=== PATIENT | female | born 1995 | race Hispanic/Latino ===

== ENCOUNTER 2017-11-08 12:50 | Emergency (ER) | payer SELFPAY ==
[2017-11-08 15:02] LABS: Urine Blood TRACE (NEG); Urine Glucose NEGATIVE (NEG); Urine Protein NEGATIVE (NEG)
--- NOTE | 2017-11-08 15:18 | RAD REPORT ---
EXAM DESCRIPTION: US - Transvaginal Study Probe - 11/08/2017 3:06 pm CLINICAL HISTORY: ICD N92.5 heavy menses COMPARISON: 2010 FINDINGS: The uterus measures 7 x 5 x 6cm. A fibroid is not seen. The endometrial stripe measures 18 millimeters. The ovaries are normal in size and echotexture. A small amount of free fluid is present. IMPRESSION: Mild prominence the endometrial stripe. Follow-up ultrasound in a couple months is recom mended to assess stability/resolution
[2017-11-08 15:48] LABS: Absolute Lymphocytes (CBC) 2.5 K/uL (0.7-4.9); Absolute Monocytes 0.5 K/uL (0.1-1.3); Absolute Neutrophil 5.6 K/uL (1.8-8.0); Basophils % 0.9 % (0-1.3); MCH 24.6 pg (27.0-35.0); MCV 77.2 fL (80-100); MPV 9.5 fL (7.6-11.3); Monocytes % 5.2 % (3.3-12.3)
[2017-11-08 15:50] LABS: BUN Blood Urea Nitrogen 8 mg/dL (6-20); Bicarbonate 27 mEq/L (21-31); Glucose Level 94 mg/dL (65-120); Potassium 3.7 mEq/L (3.6-5.0); Sodium Level 137 mEq/L (135-145)
--- NOTE | 2017-11-08 16:01 | ER ---
Nurse's Notes [facility] Name: Rubina Martinez Age: 22 yrs Sex: Female : 1995 Arrival Date: 11/08/2017 Time: 12:51 Bed 14 Private MD: Diagnosis: Lower abdominal pain, unspecified Presentation: 11/08 13:32 Presenting complaint: Patient states: Lower abdominal/ pelvic pain that started aj yesterday. Denies N/V/D, constipation, burning with urination, or vaginal discharge. Not tender upon palpation. Transition of care: patient was not received from another setting of care. Onset of symptoms was November 07, 2017. Initial Sepsis Screen: Does the patient meet any 2 criteria? No. Patient's initial sepsis screen is negative. Does the patient have a suspected source of infection? No. Patient's initial sepsis screen is negative. Care prior to arrival: None. 13:32 Method Of Arrival: Ambulatory aj 13:32 Acuity: ARYAN 3 aj Triage Assessment: 13:34 General: Appears in no apparent distress. comfortable, Behavior is calm, cooperative, aj appropriate for age. Pain: Complains of pain in right lower quadrant, left lower quadrant, suprapubic area, right inguinal area and left inguinal area Pain currently is 7 out of 10 on a pain scale. Neuro: Level of Consciousness is awake, alert, obeys commands, Oriented to person, place, time, situation. Respiratory: Airway is patent Respiratory effort is even, unlabored, Respiratory pattern is regular, symmetrical. GI: Reports lower abdominal pain, Patient currently denies constipation, diarrhea, nausea, vomiting. : Denies burning with urination, vaginal bleeding. Derm: Skin is intact, is healthy with good turgor, Skin is pink, warm \T\ dry. normal. 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 - Social history:: Smoking status: Patient/guardian denies using tobacco. Screenin:25 Abuse screen: Denies threats or abuse. Denies injuries from another. Nutritional jl7 screening: No deficits noted. Tuberculosis screening: No symptoms or risk factors identified. Fall Risk None identified. Assessment: 14:25 General: Appears in no apparent distress. uncomfortable, Behavior is calm, cooperative, jl7 appropriate for age. Pain: Complains of pain in left lower quadrant and right lower quadrant Pain radiates to pelvis Pain currently is 7 out of 10 on a pain scale. Quality of pain is described as sharp, Pain began 1 day ago. Is continuous. Neuro: Level of Consciousness is awake, alert, obeys commands, Oriented to person, place, time, situation. Cardiovascular: Patient's skin is warm and dry. Respiratory: Airway is patent Respiratory effort is even, unlabored, Respiratory pattern is regular, symmetrical. GI: Bowel sounds present X 4 quads. Abd is soft X 4 quads Abdomen is tender to palpation in left lower quadrant and right lower quadrant Patient currently denies diarrhea, nausea, vomiting. : Denies burning with urination, pain. EENT: No signs and/or symptoms were reported regarding the EENT system. Derm: Skin is pink, warm \T\ dry. Musculoskeletal: No signs and/or symptoms reported regarding the musculoskeletal system. 15:30 Reassessment: No changes from previously documented assessment. Patient and/or family jl7 updated on plan of care and expected duration. Pain level reassessed. Patient is alert, oriented x 3, equal unlabored respirations, skin warm/dry/pink. Vital Signs: 13:34 BP 106 / 72; Pulse 83; Resp 19; Temp 99.0; Pulse Ox 99% on R/A; Weight 58.97 kg; Height aj 5 ft. 5 in. (165.10 cm); Pain 7/10; 14:30 BP 101 / 71; Pulse 84; Resp 16; Pulse Ox 99% ; jl7 15:00 BP 104 / 70; Pulse 84; Resp 16; Pulse Ox 99% ; jl7 16:00 BP 103 / 67; Pulse 80; Resp 16 S; Pulse Ox 99% on R/A; jl7 13:34 Body Mass Index 21.63 (58.97 kg, 165.10 cm) aj ED Course: 12:51 Patient arrived in ED. as 13:34 Triage completed. aj 13:34 Arm band placed on left wrist. Patient placed in waiting room, Patient notified of wait aj time. 14:17 Candice Casillas FNP-C is PHCP. kb 14:17 Brett Sapp MD is Attending Physician. kb 14:23 Tre Day, RN is Primary Nurse. jl7 14:25 Patient has correct armband on for positive identification. Bed in low position. Call jl7 light in reach. Side rails up X 1. Pulse ox on. NIBP on. 15:06 US Transvaginal Study (Probe) In Process Unspecified. EDMS 15:35 Initial lab(s) drawn, by me, sent to lab. Inserted saline lock: 20 gauge in right jl7 antecubital area, using aseptic technique. Blood collected. 16:16 No provider procedures requiring assistance completed. IV discontinued, intact, jl7 bleeding controlled, No redness/swelling at site. Pressure dressing applied. Administered Medications: No medications were administered Outcome: 16:00 Discharge ordered by MD. kb 16:16 Discharged to home ambulatory. jl7 16:16 Condition: stable 16:16 Discharge instructions given to patient, Instructed on discharge instructions, follow up and referral plans. medication usage, Demonstrated understanding of instructions, follow-up care, medications, Prescriptions given X 1. 16:17 Patient left the ED. jl7 Signatures: Dispatcher [employer] EDMS Candice Casillas, LINA VACUUM DRIER OPERATOR-Nereida Caceres, RN RN Leeann Young as Tre Day, RN RN [email or web address]
--- NOTE | 2017-11-08 16:01 | EDPHYS ---
Physician Documentation [facility] Name: Rubina Martinez Age: 22 yrs Sex: Female : 1995 Arrival Date: 11/08/2017 Time: 12:51 Bed 14 Private MD: ED Physician Brett Sapp HPI: 11/08 15:59 This 22 yrs old Female presents to ER via Ambulatory with complaints of kb Abdominal Pain. 15:59 The patient presents with abdominal pain in the lower abdomen. Onset: The kb symptoms/episode began/occurred last night. The symptoms do not radiate. Associated signs and symptoms: none. The symptoms are described as achy. Modifying factors: The symptoms are alleviated by nothing, the symptoms are aggravated by nothing. Severity of pain: At its worst the pain was mild in the emergency department the pain is unchanged. The patient has not experienced similar symptoms in the past. The patient has not recently seen a physician. 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 - Social history:: Smoking status: Patient/guardian denies using tobacco. ROS: 15:57 Constitutional: Negative for fever, chills, and weight loss, Cardiovascular: Negative kb for chest pain, palpitations, and edema, Respiratory: Negative for shortness of breath, cough, wheezing, and pleuritic chest pain, Back: Negative for injury and pain, : Negative for injury, bleeding, discharge, and swelling, MS/Extremity: Negative for injury and deformity, Skin: Negative for injury, rash, and discoloration, Neuro: Negative for headache, weakness, numbness, tingling, and seizure. 15:57 Abdomen/GI: Positive for abdominal pain, Negative for nausea, vomiting, and diarrhea, constipation, abdominal cramps, abdominal distension, anorexia. Exam: 15:57 Constitutional: This is a well developed, well nourished patient who is awake, alert, kb and in no acute distress. Head/Face: Normocephalic, atraumatic. Chest/axilla: Normal chest wall appearance and motion. Nontender with no deformity. No lesions are appreciated. Cardiovascular: Regular rate and rhythm with a normal S1 and S2. No gallops, murmurs, or rubs. Normal PMI, no JVD. No pulse deficits. Respiratory: Lungs have equal breath sounds bilaterally, clear to auscultation and percussion. No rales, rhonchi or wheezes noted. No increased work of breathing, no retractions or nasal flaring. Back: No spinal tenderness. No costovertebral tenderness. Full range of motion. Skin: Warm, dry with normal turgor. Normal color with no rashes, no lesions, and no evidence of cellulitis. MS/ Extremity: Pulses equal, no cyanosis. Neurovascular intact. Full, normal range of motion. Neuro: Awake and alert, GCS 15, oriented to person, place, time, and situation. Cranial nerves II-XII grossly intact. Motor strength 5/5 in all extremities. Sensory grossly intact. Cerebellar exam normal. Normal gait. 15:57 Abdomen/GI: Inspection: abdomen appears normal, Bowel sounds: normal, in all quadrants, Palpation: soft, in all quadrants, mild abdominal tenderness, in the right lower quadrant and left lower quadrant. Vital Signs: 13:34 BP 106 / 72; Pulse 83; Resp 19; Temp 99.0; Pulse Ox 99% on R/A; Weight 58.97 kg; Height aj 5 ft. 5 in. (165.10 cm); Pain 7/10; 14:30 BP 101 / 71; Pulse 84; Resp 16; Pulse Ox 99% ; jl7 15:00 BP 104 / 70; Pulse 84; Resp 16; Pulse Ox 99% ; jl7 16:00 BP 103 / 67; Pulse 80; Resp 16 S; Pulse Ox 99% on R/A; jl7 13:34 Body Mass Index 21.63 (58.97 kg, 165.10 cm) aj MDM: 14:18 Patient medically screened. kb 15:57 Data reviewed: vital signs, nurses notes. Data interpreted: Pulse oximetry: on room air kb is 99 %. Interpretation: normal. Counseling: I had a detailed discussion with the patient and/or guardian regarding: the historical points, exam findings, and any diagnostic results supporting the discharge/admit diagnosis, lab results, radiology results, the need for outpatient follow up, a family practitioner, to return to the emergency department if symptoms worsen or persist or if there are any questions or concerns that arise at home. 11/08 14:42 Order name: Urine Dipstick--Ancillary (enter results); Complete Time: 15:08 mw2 11/08 14:42 Order name: Urine --Ancillary (enter results); Complete Time: 15:08 mw2 11/08 14:29 Order name: Urine Dipstick-Ancillary (obtain specimen); Complete Time: 14:36 kb 11/08 14:36 Order name: US Transvaginal Study (Probe); Complete Time: 15:33 kb 11/08 15:14 Order name: CBC with Diff; Complete Time: 15:57 kb 11/08 15:14 Order name: Basic Metabolic Panel; Complete Time: 15:57 kb 11/08 14:30 Order name: Urine Test (obtain specimen); Complete Time: 14:36 kb Administered Medications: No medications were administered Disposition: 16:43 Co-signature as Attending Physician, Brett Sapp MD. rn Disposition: 11/08/17 16:00 Discharged to Home. Impression: Lower abdominal pain, unspecified. - Condition is Stable. - Discharge Instructions: Abdominal Pain, Women. - Prescriptions for Diclofenac Sodium 75 mg Oral Tablet, Delayed Release (E.C.) - take 1 tablet by ORAL route 2 times per day As needed; 30 tablet. - Medication Reconciliation Form, Thank You Letter, Antibiotic Education, Prescription Opioid Use form. - Follow up: Emergency Department; When: As needed; Reason: Worsening of condition. Follow up: Private Physician; When: 2 - 3 days; Reason: Recheck today's complaints, Continuance of care, Re-evaluation by your physician. Signatures: Dispatcher [employer] Candice Valenzuela, COMMUNICATION EQUIPMENT MECHANIC-C COMMUNICATION EQUIPMENT MECHANIC-Nereida Caceres, RN Brett Ortez MD MD rn Leal, Jahala, RN RN jl7
[2017-11-08 16:32] VITALS: TEMP 99; O2SAT 99
[2017-11-08 16:35] VITALS: BP 103/67
== END 2017-11-08 16:17 | disposition home or self-care (01) ==
LOC: ER 12:50
DX: R10.30 Lower abdominal pain, unspecified (principal)
CPT/HCPCS: 36415; 76830; 80048; 81003; 81025; 85025; 99284

== ENCOUNTER 2018-02-26 21:59 | Emergency (ER) | payer BC, SELFPAY ==
--- NOTE | 2018-02-26 22:40 | ER ---
Nurse's Notes [facility] Name: Rubina Martinez Age: 22 yrs Sex: Female : 1995 Arrival Date: 02/26/2018 Time: 22:02 Bed 25 Private MD: Diagnosis: Labial edema Presentation: 02/26 22:11 Presenting complaint: Patient states: lip swelling that started last night. pt denies ak1 changes in routine or diet. pt stated she took Benadryl last night and again today at 1500. Transition of care: patient was not received from another setting of care. Onset of symptoms was February 25, 2018. Risk Assessment: Do you want to hurt yourself or someone else? Patient reports no desire to harm self or others. Care prior to arrival: None. 22:11 Method Of Arrival: Ambulatory ak1 22:11 Acuity: ARYAN 4 ak1 22:49 Initial Sepsis Screen: Does the patient meet any 2 criteria? No. Patient's initial tl3 sepsis screen is negative. Does the patient have a suspected source of infection? No. Patient's initial sepsis screen is negative. Triage Assessment: 22:13 General: Appears in no apparent distress. Behavior is calm, cooperative. Pain: ak1 Complains of pain in mouth. EENT: No signs and/or symptoms were reported regarding the EENT system. Neuro: Cardiovascular: No deficits noted. Respiratory: No deficits noted. GI: No signs and/or symptoms were reported involving the gastrointestinal system. : No signs and/or symptoms were reported regarding the genitourinary system. Derm: swelling to top lip. Musculoskeletal: No signs and/or symptoms reported regarding the musculoskeletal system. 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 - Social history:: Smoking status: Patient/guardian denies using tobacco. - Ebola Screening: : No symptoms or risks identified at this time. Screenin:14 Abuse screen: Denies threats or abuse. Denies injuries from another. Nutritional ak1 screening: No deficits noted. Tuberculosis screening: No symptoms or risk factors identified. Fall Risk None identified. Assessment: 22:28 General: Appears in no apparent distress. comfortable, well groomed, well developed, tl3 well nourished, Behavior is calm, cooperative, appropriate for age. Pain: Denies pain. Neuro: Level of Consciousness is awake, alert, obeys commands, Oriented to person, place, time, situation, Appropriate for age. Cardiovascular: Patient's skin is warm and dry. Respiratory: Airway is patent Respiratory effort is even, unlabored, Respiratory pattern is regular, symmetrical. GI: No signs and/or symptoms were reported involving the gastrointestinal system. : No signs and/or symptoms were reported regarding the genitourinary system. EENT: No signs and/or symptoms were reported regarding the EENT system. Derm: No signs and/or symptoms reported regarding the dermatologic system. Musculoskeletal: No signs and/or symptoms reported regarding the musculoskeletal system. 22:48 Reassessment: Patient appears in no apparent distress at this time. No changes from tl3 previously documented assessment. Patient and/or family updated on plan of care and expected duration. Pain level reassessed. Patient is alert, oriented x 3, equal unlabored respirations, skin warm/dry/pink. Vital Signs: 22:10 BP 110 / 56; Pulse 70; Resp 16; Temp 98.8(O); Pulse Ox 100% on R/A; Weight 58.97 kg ak1 (R); Height 5 ft. 5 in. (165.10 cm) (R); Pain 3/10; 22:48 BP 101 / 47; Pulse 86; Resp 18; Pulse Ox 99% ; tl3 22:10 Body Mass Index 21.63 (58.97 kg, 165.10 cm) ak1 ED Course: 22:02 Patient arrived in ED. do 22:04 Karin Mustafa [facility]-C [facility]. snw 22:04 Justin Torres MD is Attending Physician. snw 22:10 Arm band placed on Patient placed in an exam room, on a stretcher, on pulse oximetry, ak1 Patient notified of wait time. 22:12 Triage completed. ak1 22:14 Patient has correct armband on for positive identification. Bed in low position. Call ak1 light in reach. Side rails up X 1. Pulse ox on. NIBP on. 22:28 Martha Cutler, RN is Primary Nurse. tl3 22:29 No provider procedures requiring assistance completed. Patient did not have IV access tl3 during this emergency room visit. Administered Medications: 22:45 Drug: Acyclovir 800 mg Route: PO; mg2 22:46 Follow up: Response: No adverse reaction; Medication administered at discharge. mg2 22:47 Follow up: Response: Medication administered at discharge. tl3 22:45 Drug: predniSONE 20 mg Route: PO; mg2 22:46 Follow up: Response: No adverse reaction; Medication administered at discharge. mg2 22:47 Follow up: Response: Medication administered at discharge. tl3 Outcome: 22:40 Discharge ordered by MD. snw 22:48 Discharged to home ambulatory. tl3 22:48 Condition: good 22:48 Discharge instructions given to patient, Instructed on discharge instructions, follow up and referral plans. medication usage, Demonstrated understanding of instructions, follow-up care, medications, Prescriptions given X 2. 22:49 Patient left the ED. tl3 Signatures: Karin Mustafa, LAWN CARE WORKER-C LAWN CARE WORKER-Csnw Dyana Castillo, RN RN ak1 Nadia Sanchez Tammy, RN RN tl3 Frederick Mancuso RN RN mg2
--- NOTE | 2018-02-26 22:40 | EDPHYS ---
Physician Documentation [facility] Name: Rubina Martinez Age: 22 yrs Sex: Female : 1995 Arrival Date: 02/26/2018 Time: 22:02 Bed 25 Private MD: ED Physician Justin Torres HPI: 02/26 22:50 This 22 yrs old Female presents to ER via Ambulatory with complaints of Lips snw Swelling. 22:50 The patient presents with swelling. The problem is located in the upper moises snw border. Onset: The symptoms/episode began/occurred suddenly. Duration: The symptoms are continuous, and are unchanged since they started. Associated signs and symptoms: The patient has no apparent associated signs or symptoms. Severity of symptoms: At their worst the symptoms were moderate. The patient has not experienced similar symptoms in the past. The patient has not recently seen a physician. 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 - Social history:: Smoking status: Patient/guardian denies using tobacco. - Ebola Screening: : No symptoms or risks identified at this time. ROS: 22:49 Constitutional: Negative for fever, chills, and weight loss, Eyes: Negative for injury, snw pain, redness, and discharge, Neck: Negative for injury, pain, and swelling, Cardiovascular: Negative for chest pain, palpitations, and edema, Respiratory: Negative for shortness of breath, cough, wheezing, and pleuritic chest pain, Abdomen/GI: Negative for abdominal pain, nausea, vomiting, diarrhea, and constipation, Back: Negative for injury and pain, : Negative for injury, bleeding, discharge, and swelling, MS/Extremity: Negative for injury and deformity, Skin: Negative for injury, rash, and discoloration, Neuro: Negative for headache, weakness, numbness, tingling, and seizure, Psych: Negative for depression, anxiety, suicide ideation, homicidal ideation, and hallucinations. 22:49 ENT: Positive for upper lip with swelling to midline area, notes that she may have bitten her upper lip and then the swelling began. Exam: 22:47 Constitutional: This is a well developed, well nourished patient who is awake, alert, snw and in no acute distress. Head/Face: Normocephalic, atraumatic. Eyes: Pupils equal round and reactive to light, extra-ocular motions intact. Lids and lashes normal. Conjunctiva and sclera are non-icteric and not injected. Cornea within normal limits. Periorbital areas with no swelling, redness, or edema. ENT: Nares patent. No nasal discharge, no septal abnormalities noted. Tympanic membranes are normal and external auditory canals are clear. Oropharynx with no redness, swelling, or masses, exudates, or evidence of obstruction, uvula midline. upper labia with edema with mildline ulcerated area/scabbed. Mucous membranes moist. Neck: Trachea midline, no thyromegaly or masses palpated, and no cervical lymphadenopathy. Supple, full range of motion without nuchal rigidity, or vertebral point tenderness. No Meningismus. Chest/axilla: Normal chest wall appearance and motion. Nontender with no deformity. No lesions are appreciated. Cardiovascular: Regular rate and rhythm with a normal S1 and S2. No gallops, murmurs, or rubs. Normal PMI, no JVD. No pulse deficits. Respiratory: Lungs have equal breath sounds bilaterally, clear to auscultation and percussion. No rales, rhonchi or wheezes noted. No increased work of breathing, no retractions or nasal flaring. Abdomen/GI: Soft, non-tender, with normal bowel sounds. No distension or tympany. No guarding or rebound. No evidence of tenderness throughout. Back: No spinal tenderness. No costovertebral tenderness. Full range of motion. Skin: Warm, dry with normal turgor. Normal color with no rashes, no lesions, and no evidence of cellulitis. MS/ Extremity: Pulses equal, no cyanosis. Neurovascular intact. Full, normal range of motion. Neuro: Awake and alert, GCS 15, oriented to person, place, time, and situation. Cranial nerves II-XII grossly intact. Motor strength 5/5 in all extremities. Sensory grossly intact. Cerebellar exam normal. Normal gait. Psych: Awake, alert, with orientation to person, place and time. Behavior, mood, and affect are within normal limits. Vital Signs: 22:10 BP 110 / 56; Pulse 70; Resp 16; Temp 98.8(O); Pulse Ox 100% on R/A; Weight 58.97 kg ak1 (R); Height 5 ft. 5 in. (165.10 cm) (R); Pain 3/10; 22:48 BP 101 / 47; Pulse 86; Resp 18; Pulse Ox 99% ; tl3 22:10 Body Mass Index 21.63 (58.97 kg, 165.10 cm) ak1 MDM: 22:26 Patient medically screened. snw 22:48 Data reviewed: vital signs, nurses notes. Data interpreted: Pulse oximetry: on room air snw is 100 %. Interpretation: normal. Counseling: I had a detailed discussion with the patient and/or guardian regarding: the historical points, exam findings, and any diagnostic results supporting the discharge/admit diagnosis, the need for outpatient follow up, to return to the emergency department if symptoms worsen or persist or if there are any questions or concerns that arise at home. Special discussion: Based on the history and exam findings, there is no indication for further emergent testing or inpatient evaluation. I discussed with the patient/guardian the need to see the primary care provider for further evaluation of the symptoms. Administered Medications: 22:45 Drug: Acyclovir 800 mg Route: PO; mg2 22:46 Follow up: Response: No adverse reaction; Medication administered at discharge. mg2 22:47 Follow up: Response: Medication administered at discharge. tl3 22:45 Drug: predniSONE 20 mg Route: PO; mg2 22:46 Follow up: Response: No adverse reaction; Medication administered at discharge. mg2 22:47 Follow up: Response: Medication administered at discharge. tl3 Disposition: 02/26/18 22:40 Discharged to Home. Impression: Labial edema. - Condition is Stable. - Discharge Instructions: Edema, Cryotherapy. - Prescriptions for Valtrex 1 g Oral Tablet - take 2 tablet by ORAL route every 12 hours for 1 day; 4 tablet. Prednisone 20 mg Oral Tablet - take 1 tablet by ORAL route 2 times per day for 5 days; 10 tablet. - Work release form, Medication Reconciliation Form, Thank You Letter, Antibiotic Education, Prescription Opioid Use form. - Follow up: Private Physician; When: 2 - 3 days; Reason: Recheck today's complaints, Continuance of care, Re-evaluation by your physician. Follow up: Emergency Department; When: As needed; Reason: Worsening of condition. Addendum: 03/03/2018 15:30 Co-signature as Attending Physician, Justin Torres MD. g s Signatures: Karin Mustafa, BILLER-C BILLER-Csnw Dyana Castillo, RN RN ak1 Justin Torres MD MD gs Martha Cutler, RN RN tl3 Frederick Mancuso RN RN mg2 Corrections: (The following items were deleted from the chart) 02/26 22:49 22:40 02/26/2018 22:40 Discharged to Home. Impression: Labial edema. Condition is tl3 Stable. Forms are Medication Reconciliation Form, Thank You Letter, Antibiotic Education, Prescription Opioid Use. Follow up: Private Physician; When: 2 - 3 days; Reason: Recheck today's complaints, Continuance of care, Re-evaluation by your physician. Follow up: Emergency Department; When: As needed; Reason: Worsening of condition. snw
[2018-02-26] MEDS ORDERED: ACYCLOVIR 400 MG TABLET ONE (22:46)
[2018-02-26] MEDS ORDERED: predniSONE 20 MG TAB ONE (22:47)
[2018-02-27 01:05] VITALS: TEMP 98.8
[2018-02-27 01:06] VITALS: BP 101/47; O2SAT 99
== END 2018-02-26 22:49 | disposition home or self-care (01) ==
LOC: ER 21:59
DX: R60.0 Localized edema (principal)
CPT/HCPCS: 99283; J7512

== ENCOUNTER 2018-10-18 14:12 | Emergency (ER) | payer BC ==
--- NOTE | 2018-10-18 15:30 | RAD REPORT ---
EXAM DESCRIPTION: RAD - Wrist Right 3 View - 10/18/2018 3:15 pm CLINICAL HISTORY: Right wrist pain following fall COMPARISON: January 2012 FINDINGS: No fracture is identified. There is no dislocation or periosteal reaction noted. No acute bone or joint finding. No significant change from the 2012 study. No foreign body or other soft tissu e abnormality. IMPRESSION: Negative right wrist examination.
--- NOTE | 2018-10-18 15:31 | RAD REPORT ---
EXAM DESCRIPTION: RAD - Hand Right 3 View - 10/18/2018 3:15 pm CLINICAL HISTORY: Fall, right hand and wrist pain COMPARISON: None. FINDINGS: No fracture is identified. There is no dislocation or periosteal reaction noted. No forei gn body or other soft tissue abnormality. IMPRESSION: Negative right hand examination.
--- NOTE | 2018-10-18 15:35 | ER ---
Nurse's Notes [facility] Name: Rubina Martinez Age: 23 yrs Sex: Female : 1995 Arrival Date: 10/18/2018 Time: 14:14 Bed 12 Private MD: Diagnosis: Contusion of right wrist Presentation: 10/18 14:16 Presenting complaint: Patient states: "I was at work and the floor was wet so I fell aa5 and the plates that I was carrying fell on top of my wrist". pt c/o right wrist pain. 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 Transition of care: patient was not received from another setting of care. Onset of symptoms was October 18, 2018. Risk Assessment: Do you want to hurt yourself or someone else? Patient reports no desire to harm self or others. Initial Sepsis Screen: Does the patient meet any 2 criteria? No. Patient's initial sepsis screen is negative. Does the patient have a suspected source of infection? No. Patient's initial sepsis screen is negative. Care prior to arrival: None. 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 - Social history:: Smoking status: Patient/guardian denies using tobacco. - Ebola Screening: : No symptoms or risks identified at this time. - Family history:: not pertinent. - Hospitalizations: : No recent hospitalization is reported. Screenin:24 Abuse screen: Denies threats or abuse. Nutritional screening: No deficits noted. aa5 Tuberculosis screening: No symptoms or risk factors identified. Fall Risk None identified. Assessment: 14:22 General: Appears comfortable, Behavior is calm, cooperative. Pain: Complains of pain in aa5 right wrist Quality of pain is described as aching, throbbing, Is continuous, Aggravated by any movement to right wrist. Neuro: Level of Consciousness is awake, alert, obeys commands, Oriented to person, place, time, situation. Cardiovascular: Capillary refill < 3 seconds is brisk in bilateral fingers. Respiratory: Airway is patent Respiratory effort is even, unlabored, Respiratory pattern is regular, symmetrical. GI: No signs and/or symptoms were reported involving the gastrointestinal system. : No signs and/or symptoms were reported regarding the genitourinary system. EENT: No signs and/or symptoms were reported regarding the EENT system. Derm: Skin is pink, warm \\T\\ dry. Musculoskeletal: Reports pain in right wrist. Vital Signs: 14:17 BP 103 / 69; Pulse 86; Resp 16 S; Temp 99.3(TE); Pulse Ox 99% on R/A; Weight 58.97 kg aa5 (R); Height 5 ft. 6 in. (167.64 cm) (R); Pain 8/10; 14:17 Body Mass Index 20.98 (58.97 kg, 167.64 cm) aa5 ED Course: 14:14 Patient arrived in ED. mr 14:17 Triage completed. aa5 14:17 Arm band placed on. aa5 14:17 Patient has correct armband on for positive identification. aa5 14:18 Jenny Beyer RN is Primary Nurse. aa5 14:20 Brett Sapp MD is Attending Physician. rn 15:13 X-ray completed. Portable x-ray completed in exam room. Patient tolerated procedure ml well. 15:15 XRAY Wrist RIGHT 3 view In Process Unspecified. EDMS 15:15 XRAY Hand RIGHT 3 View In Process Unspecified. EDMS 15:40 No provider procedures requiring assistance completed. Patient did not have IV access aa5 during this emergency room visit. Administered Medications: No medications were administered Outcome: 15:33 Discharge ordered by . rn 15:40 Discharged to home ambulatory. aa5 15:40 Condition: good 15:40 Discharge instructions given to patient, Instructed on discharge instructions, follow up and referral plans. Demonstrated understanding of instructions, follow-up care. 15:46 Patient left the ED. aa5 Signatures: Dispatcher [employer] EDPA Florian Josiane Oliveira Doris Brett Barillas MD MD rn Calderon, Audri, RN RN aa5 Corrections: (The following items were deleted from the chart) 14:18 14:17 BP 103 / 69; Pulse 86bpm; Resp 16bpm; Spontaneous; Pulse Ox 99% RA; Temp 99.3F aa5 Temporal; 58.97 kg Reported; Height 5 ft. 6 in. Reported; BMI: 20.9; aa5
--- NOTE | 2018-10-18 15:35 | EDPHYS ---
Physician Documentation [facility] Name: Rubina Martinez Age: 23 yrs Sex: Female : 1995 Arrival Date: 10/18/2018 Time: 14:14 Bed 12 Private MD: ED Physician Brett Sapp HPI: 10/18 14:24 This 23 yrs old Female presents to ER via Ambulatory with complaints of Fall rn Injury, Wrist Injury. 14:24 Details of fall: The patient fell from an upright position. rn 14:24 Onset: The symptoms/episode began/occurred today. Associated injuries: The patient rn sustained right wrist and hand. Severity of symptoms: At their worst the symptoms were mild, in the emergency department the symptoms are unchanged. The patient has not experienced similar symptoms in the past. Reports fall from standing, landed on right wrist and then plates landed on wrist, isolated injury. . 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 - Social history:: Smoking status: Patient/guardian denies using tobacco. - Ebola Screening: : No symptoms or risks identified at this time. - Family history:: not pertinent. - Hospitalizations: : No recent hospitalization is reported. ROS: 14:24 Constitutional: Negative for fever, chills, and weight loss, MS/Extremity: + right rn wrist and hand injury Exam: 14:24 Constitutional: This is a well developed, well nourished patient who is awake, alert, rn and in no acute distress. MS/ Extremity: Pulses equal, no cyanosis. + tenderness over distal right radius, no deformity, painful ROM right wrist and tenderness over 2nd/3rd MC. Vital Signs: 14:17 BP 103 / 69; Pulse 86; Resp 16 S; Temp 99.3(TE); Pulse Ox 99% on R/A; Weight 58.97 kg aa5 (R); Height 5 ft. 6 in. (167.64 cm) (R); Pain 8/10; 14:17 Body Mass Index 20.98 (58.97 kg, 167.64 cm) aa5 MDM: 14:20 Patient medically screened. rn 15:33 Differential diagnosis: contusion, fracture. Data reviewed: vital signs, nurses notes, rn radiologic studies, plain films, and as a result, I will discharge patient. Counseling: I had a detailed discussion with the patient and/or guardian regarding: the historical points, exam findings, and any diagnostic results supporting the discharge/admit diagnosis, radiology results, the need for outpatient follow up, to return to the emergency department if symptoms worsen or persist or if there are any questions or concerns that arise at home. Special discussion: I discussed with the patient/guardian in detail that at this point there is no indication for admission to the hospital. It is understood, however, that if the symptoms persist or worsen the patient needs to return immediately for re-evaluation. 10/18 14:24 Order name: XRAY Wrist RIGHT 3 view; Complete Time: 15:33 rn 10/18 14:24 Order name: XRAY Hand RIGHT 3 View; Complete Time: 15:33 rn Administered Medications: No medications were administered Disposition: 10/18/18 15:33 Discharged to Home. Impression: Contusion of right wrist. - Condition is Stable. - Discharge Instructions: Contusion, Wrist Pain. - Medication Reconciliation Form, Thank You Letter, Antibiotic Education, Prescription Opioid Use, Work release form form. - Follow up: Private Physician; When: As needed; Reason: Recheck today's complaints, Re-evaluation by your physician. - Problem is new. - Symptoms have improved. Signatures: Dispatcher [employer] EDBrett Conn MD MD rn Calderon, Audri, RN RN aa5 Corrections: (The following items were deleted from the chart) 15:46 15:33 10/18/2018 15:33 Discharged to Home. Impression: Contusion of right wrist. aa5 Condition is Stable. Forms are Medication Reconciliation Form, Thank You Letter, Antibiotic Education, Prescription Opioid Use. Follow up: Private Physician; When: As needed; Reason: Recheck today's complaints, Re-evaluation by your physician. Problem is new. Symptoms have improved. rn
[2018-10-18 15:53] VITALS: BP 103/69; TEMP 99.3; O2SAT 99
== END 2018-10-18 15:46 | disposition home or self-care (01) ==
LOC: ER 14:12
DX: S60.211A Contusion of right wrist, initial encounter (principal); W19.XXXA Unspecified fall, initial encounter; Y93.9 Activity, unspecified; Y92.9 Unspecified place or not applicable
CPT/HCPCS: 99283

== ENCOUNTER 2018-11-12 22:24 | Emergency (ER) | payer BC ==
[2018-11-12 23:24] LABS: Absolute Lymphocytes (CBC) 1.7 K/uL (0.7-4.9); Absolute Monocytes 0.4 K/uL (0.1-1.3); Absolute Neutrophil 3.6 K/uL (1.8-8.0); Basophils % 0.4 % (0-1.3); Eosinophils % 1.4 % (0-4.4); Lymphocytes % 30.1 % (15.3-44.8); MPV 9.4 fL (7.6-11.3); Monocytes % 6.6 % (3.3-12.3); RBC Red Blood Cell Count 4.72 M/uL (3.86-4.86)
[2018-11-12 23:36] LABS: Urine Blood NEGATIVE (NEG); Urine Glucose NEGATIVE (NEG); Urine Protein 1+ (NEG); Urine pH 7.5 (5.0-7.0)
[2018-11-12 23:41] LABS: ALT/SGPT 11 U/L (12-78); AST/SGOT 11 U/L (15-37); Albumin 3.7 g/dL (3.4-5.0); Alkaline Phosphatase 55 U/L (45-117); BUN Blood Urea Nitrogen 9 mg/dL (7-18); Bicarbonate 26 mmol/L (21-32); Bilirubin Direct 0.3 mg/dL (0-0.2); Bilirubin Total 1.7 mg/dL (0.2-1.0); Glucose Level 96 mg/dL (74-106); Lipase 93 U/L (73-393); Potassium 3.5 mmol/L (3.5-5.1); Protein, Total 7.6 g/dL (6.4-8.2); Sodium Level 142 mmol/L (136-145)
[2018-11-13] MEDS ORDERED: NA CHLORIDE 0.9% 1,000 ML ONE (01:17)
[2018-11-13] MEDS ORDERED: KETOROLAC 30 MG/ML INJ ONE (01:17)
--- NOTE | 2018-11-13 01:40 | ER ---
Nurse's Notes [facility] Name: Rubina Martinez Age: 23 yrs Sex: Female : 1995 Arrival Date: 11/12/2018 Time: 22:28 Bed 20 Private MD: Diagnosis: Abdominal tenderness Presentation: 11/12 22:38 Presenting complaint: Patient states: Left sided rib pain that began last week, pain lp1 worse now, aggravated by breathing; denies any trauma. Transition of care: patient was not received from another setting of care. Onset of symptoms was November 12, 2018. Risk Assessment: Do you want to hurt yourself or someone else? Patient reports no desire to harm self or others. Initial Sepsis Screen: Does the patient meet any 2 criteria? No. Patient's initial sepsis screen is negative. Does the patient have a suspected source of infection? No. Patient's initial sepsis screen is negative. Care prior to arrival: None. 22:38 Method Of Arrival: Ambulatory lp1 22:38 Acuity: ARYAN 4 lp1 Triage Assessment: 22:37 General: Appears in no apparent distress. uncomfortable, Behavior is calm, cooperative, cc3 appropriate for age. Pain: Complains of pain in left flank. 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 - Social history:: Smoking status: Patient/guardian denies using tobacco. - Ebola Screening: : No symptoms or risks identified at this time. Screenin:40 Abuse screen: Denies threats or abuse. Denies injuries from another. Nutritional lp1 screening: No deficits noted. Tuberculosis screening: No symptoms or risk factors identified. Fall Risk None identified. Assessment: 22:37 Reassessment: Patient appears in no apparent distress at this time. Patient and/or cc3 family updated on plan of care and expected duration. Pain level reassessed. Patient is alert, oriented x 3, equal unlabored respirations, skin warm/dry/pink. 23:20 Reassessment: Patient appears in no apparent distress at this time. Patient and/or cc3 family updated on plan of care and expected duration. Pain level reassessed. Patient is alert, oriented x 3, equal unlabored respirations, skin warm/dry/pink. 11/13 00:18 Reassessment: Patient appears in no apparent distress at this time. Patient and/or cc3 family updated on plan of care and expected duration. Pain level reassessed. Patient is alert, oriented x 3, equal unlabored respirations, skin warm/dry/pink. 01:00 Reassessment: Patient appears in no apparent distress at this time. Patient and/or cc3 family updated on plan of care and expected duration. Pain level reassessed. Patient is alert, oriented x 3, equal unlabored respirations, skin warm/dry/pink. Patient wanting to leave, informed Dr. Chandra and he said he's planning to order for a CT scan for the patient, asked the patient if she agrees for that procedure and if she's willing to wait because the procedure and result will take time and she agrees to wait for the procedure, Dr. Chandra informed. 01:30 Reassessment: Patient appears in no apparent distress at this time. Patient and/or cc3 family updated on plan of care and expected duration. Pain level reassessed. Patient is alert, oriented x 3, equal unlabored respirations, skin warm/dry/pink. Patient changed her mind and not willing to wait for the CT scan, Dr. Chandra informed. Patient still opted to go AMA though risks and consequences explained and signed an AMA form, charge nurse Marcela informed. 01:35 Reassessment: IV cannula removed and patient left ER vitally stable and ambulatory with cc3 her mimi friend. Patient denies pain at this time. Patient states feeling better. Patient states symptoms have improved. Vital Signs: 11/12 22:38 BP 111 / 61; Pulse 85; Resp 18; Temp 98.2(O); Pulse Ox 97% on R/A; Weight 58.97 kg; lp1 Height 5 ft. 6 in. (167.64 cm); Pain 8/10; 23:45 BP 101 / 63; Pulse 84; Resp 17 S; Pulse Ox 100% on R/A; cc3 11/13 00:15 BP 110 / 64; Pulse 89; Resp 18 S; Pulse Ox 100% on R/A; cc3 01:08 BP 111 / 57; Pulse 85; Resp 17 S; Pulse Ox 99% on R/A; cc3 01:25 BP 115 / 73; Pulse 86; Resp 18 S; Pulse Ox 100% on R/A; cc3 11/12 22:38 Body Mass Index 20.98 (58.97 kg, 167.64 cm) lp1 ED Course: 11/12 22:28 Patient arrived in ED. es 22:37 Terri Espinal is Primary Nurse. cc3 22:37 Patient has correct armband on for positive identification. Bed in low position. Call cc3 light in reach. Side rails up X 1. Pulse ox on. NIBP on. 22:38 Triage completed. lp1 22:38 Arm band placed on right wrist. lp1 22:39 Umair Chandra MD is Attending Physician. tw4 23:05 Inserted saline lock: 20 gauge in right antecubital area, using aseptic technique. cc3 Blood collected. 11/13 01:35 No provider procedures requiring assistance completed. IV discontinued, intact, cc3 bleeding controlled, No redness/swelling at site. Pressure dressing applied. Administered Medications: 01:00 Drug: NS 0.9% 1000 ml Route: IV; Rate: 1 bolus; Site: right antecubital; cc3 01:30 Follow up: Response: No adverse reaction; IV Status: Order to discontinue infusion; IV cc3 Intake: 600ml ; Patient left AMA 01:05 Drug: TORadol 30 mg Route: IVP; Site: right antecubital; cc3 01:30 Follow up: Response: No adverse reaction; Pain is decreased cc3 Intake: 01:30 IV: 600ml; Total: 600ml. cc3 Outcome: 01:35 AMA AMA form signed cc3 01:35 Condition: stable 01:35 Instructed on follow up and referral plans. Demonstrated understanding of instructions. 01:41 Patient left the ED. cc3 Signatures: Nesha Rasheed Laura, RN RN lp1 Umair Chandra MD MD tw4 Terri Espinal cc3
--- NOTE | 2018-11-13 01:40 | EDPHYS ---
Physician Documentation [facility] Name: Rubina Martinez Age: 23 yrs Sex: Female : 1995 Arrival Date: 11/12/2018 Time: 22:28 Bed 20 Private MD: ED Physician Umair Chandra HPI: 11/13 06:33 This 23 yrs old Female presents to ER via Ambulatory with complaints of LT tw4 SIDE PAIN. 06:33 The patient presents with abdominal pain. Onset: The symptoms/episode began/occurred 1 tw4 week(s) ago. The symptoms do not radiate. Associated signs and symptoms: none. The symptoms are described as dull. Modifying factors: The symptoms are alleviated by nothing, the symptoms are aggravated by nothing. Severity of pain: At its worst the pain was mild in the emergency department the pain is unchanged. The patient has not experienced similar symptoms in the past. 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 - Social history:: Smoking status: Patient/guardian denies using tobacco. - Ebola Screening: : No symptoms or risks identified at this time. ROS: 11/13 06:33 Constitutional: Negative for fever, chills, and weight loss, Eyes: Negative for injury, tw4 pain, redness, and discharge, ENT: Negative for injury, pain, and discharge, Cardiovascular: Negative for chest pain, palpitations, and edema, Respiratory: Negative for shortness of breath, cough, wheezing, and pleuritic chest pain. Abdomen/GI: Positive for abdominal pain, Negative for nausea and vomiting, nausea, vomiting, and diarrhea, nausea, vomiting, diarrhea, constipation, abdominal cramps, abdominal distension, anorexia, dysphagia, hematemesis, black/tarry stool, rectal pain. Exam: 06:33 Constitutional: This is a well developed, well nourished patient who is awake, alert, tw4 and in no acute distress. Head/Face: Normocephalic, atraumatic. Chest/axilla: Normal chest wall appearance and motion. Nontender with no deformity. No lesions are appreciated. Cardiovascular: Regular rate and rhythm with a normal S1 and S2. No gallops, murmurs, or rubs. Normal PMI, no JVD. No pulse deficits. Respiratory: Lungs have equal breath sounds bilaterally, clear to auscultation and percussion. No rales, rhonchi or wheezes noted. No increased work of breathing, no retractions or nasal flaring. Back: No spinal tenderness. No costovertebral tenderness. Full range of motion. MS/ Extremity: Pulses equal, no cyanosis. Neurovascular intact. Full, normal range of motion. Neuro: Awake and alert, GCS 15, oriented to person, place, time, and situation. Cranial nerves II-XII grossly intact. Motor strength 5/5 in all extremities. Sensory grossly intact. Cerebellar exam normal. Normal gait. 06:33 Abdomen/GI: Inspection: abdomen appears normal, Bowel sounds: normal, Palpation: mild abdominal tenderness, in the left upper quadrant. Vital Signs: 11/12 22:38 BP 111 / 61; Pulse 85; Resp 18; Temp 98.2(O); Pulse Ox 97% on R/A; Weight 58.97 kg; lp1 Height 5 ft. 6 in. (167.64 cm); Pain 8/10; 23:45 BP 101 / 63; Pulse 84; Resp 17 S; Pulse Ox 100% on R/A; cc3 11/13 00:15 BP 110 / 64; Pulse 89; Resp 18 S; Pulse Ox 100% on R/A; cc3 01:08 BP 111 / 57; Pulse 85; Resp 17 S; Pulse Ox 99% on R/A; cc3 01:25 BP 115 / 73; Pulse 86; Resp 18 S; Pulse Ox 100% on R/A; cc3 11/12 22:38 Body Mass Index 20.98 (58.97 kg, 167.64 cm) lp1 MDM: 11/12 22:39 Patient medically screened. tw4 11/13 06:33 Differential diagnosis: acute coronary syndrome, appendicitis. Data reviewed: vital tw4 signs, nurses notes. Data interpreted: Pulse oximetry:. Counseling: I had a detailed discussion with the patient and/or guardian regarding: the historical points, exam findings, and any diagnostic results supporting the discharge/admit diagnosis. Refusal of service: The patient/guardian displays adequate decision making capability and despite a detailed discussion of alternatives, benefits, risks, and consequences refuses: CT Scan, all lab tests. Special discussion: I discussed with the patient/guardian in detail that at this point there is no indication for admission to the hospital. It is understood, however, that if the symptoms persist or worsen the patient needs to return immediately for re-evaluation. 06:37 Medication response: Toradol relieved patient's pain. The symptoms have resolved. Response to treatment: and as a result, I will discharge patient. 11/12 21:58 Order name: Basic Metabolic Panel; Complete Time: 00:49 11/13 00:49 Interpretation: Normal except: CL 110. 11/12 22:58 Order name: CBC with Diff; Complete Time: 00:49 11/13 00:49 Interpretation: Normal except: HGB 10.7; HCT 34.0; MCV 72.0; MCH 22.7; MCHC 31.5; RDW tw4 17.1. 11/12 22:58 Order name: Creatinine for Radiology; Complete Time: 00:49 11/13 00:49 Interpretation: Within normal limits: CRE 0.60. 11/12 22:58 Order name: Hepatic Function 11/12 22:58 Order name: Lipase; Complete Time: 00:49 11/13 00:49 Interpretation: Within normal limits: LIP 93. [facility] 11/12 23:33 Order name: Urine Dipstick--Ancillary (enter results) [facility] 11/12 22:58 Order name: IV Saline Lock; Complete Time: 23:09 11/12 22:58 Order name: Labs collected and sent; Complete Time: 23:09 [facility] 11/12 22:58 Order name: Urine Dipstick-Ancillary (obtain specimen); Complete Time: 23:39 11/12 22:58 Order name: Urine Test (obtain specimen); Complete Time: 23:39 11/12 23:33 Order name: Urine --Ancillary (enter results); Complete Time: 00:48 mw2 Administered Medications: 01:00 Drug: NS 0.9% 1000 ml Route: IV; Rate: 1 bolus; Site: right antecubital; cc3 01:30 Follow up: Response: No adverse reaction; IV Status: Order to discontinue infusion; IV cc3 Intake: 600ml ; Patient left AMA 01:05 Drug: TORadol 30 mg Route: IVP; Site: right antecubital; cc3 01:30 Follow up: Response: No adverse reaction; Pain is decreased cc3 Disposition: 11/13/18 01:39 Patient has left against medical advice. Impression: Abdominal tenderness. - Patients states they are going to Home. - Condition is Stable. - Discharge Instructions: Abdominal Pain, Adult, [id number]. - Prescriptions for Bentyl 20 mg Oral Tablet - take 1 tablet by ORAL route every 6 hours As needed; 20 tablet. Follow up: Private Physician; When: Upon discharge from the Emergency Department; Reason: If symptoms return, Recheck today's complaints, Continuance of care. - Problem is new. - Symptoms have improved. Signatures: Dispatcher [employer] EDHeidy Pollock RN RN lp1 Umair Chandra MD MD tw4 Terri Espinal cc3 Corrections: (The following items were deleted from the chart) 01:41 01:39 11/13/2018 01:39 Patients has left against medical advice. Impression: Abdominal cc3 tenderness. Patient states they are going to Home. Condition is Stable. Follow up: Private Physician; When: Upon discharge from the Emergency Department; Reason: If symptoms return, Recheck today's complaints, Continuance of care. Problem is new. Symptoms have improved. tw4
[2018-11-13 01:45] VITALS: TEMP 98.2
[2018-11-13 01:49] VITALS: BP 115/73; O2SAT 100
== END 2018-11-13 01:41 | disposition left against medical advice (07) ==
LOC: ER 22:24
DX: R10.812 Left upper quadrant abdominal tenderness (principal)
CPT/HCPCS: 36415; 80048; 80076; 81003; 81025; 83690; 85025; 96374; 99284; J7030

== ENCOUNTER 2018-11-13 13:05 | Emergency (ER) | payer BC ==
--- NOTE | 2018-11-13 14:40 | RAD REPORT ---
EXAM DESCRIPTION: CT - Abdomen Pelvis W Contrast - 11/13/2018 2:25 pm CLINICAL HISTORY: Abdominal pain, nausea, vomiting COMPARISON: None. TECHNIQUE: Biphasic, helical CT imaging of the abdomen and pelvis was performed following 100 ml non -ionic IV contrast. Oral contrast was given. All CT scans are performed using dose optimization technique as appropriate and may include automated exposure control or mA/KV adjustment according to patient size. FINDINGS: No suspicious findings in the lung bases. The liver, spleen, and pancreas show no suspicious findings. Gallbladder and biliary tree are also wi thout suspicious finding. Symmetric renal function is seen with no hydronephrosis or suspicious renal mass. No pyelonephritis o r acute parenchymal process. No bladder abnormalities. No adrenal abnormalities. No dilated bowel loops or bowel wall thickening. Appendix is normal. No free air or pneumatosis. No f ocal inflammatory stranding. Trace fluid in the cul-de-sac is well within physiologic limits. Uterus and ovaries show no suspicious findings. No hernia, mass or bulky lymphadenopathy. No suspicious bony findings. IMPRESSION: Contrast enhanced CT abdomen and pelvis showing no significant or suspicious finding.
--- NOTE | 2018-11-13 15:00 | ER ---
Nurse's Notes [facility] Name: Rubina Martinez Age: 23 yrs Sex: Female : 1995 Arrival Date: 11/13/2018 Time: 13:07 Bed 23 Private MD: Diagnosis: Pain localized to upper abdomen;Left upper quadrant abdominal tenderness Presentation: 11/13 13:12 Presenting complaint: Patient states: i came in here last night i had really bad pain tw2 on my side and i thought it would go away, this morning i was just eating a taco and it started hurting and i was at work it started hurting really bad,i left before they could do the xrays or anything. Transition of care: patient was not received from another setting of care. Onset of symptoms was November 13, 2018. Risk Assessment: Do you want to hurt yourself or someone else? Patient reports no desire to harm self or others. Initial Sepsis Screen: Does the patient meet any 2 criteria? No. Patient's initial sepsis screen is negative. Does the patient have a suspected source of infection? No. Patient's initial sepsis screen is negative. Care prior to arrival: None. 13:12 Method Of Arrival: Ambulatory tw2 13:12 Acuity: ARYAN 3 tw2 Triage Assessment: 13:14 General: Appears in no apparent distress. slender, Behavior is calm, cooperative, tw2 appropriate for age. Pain: Complains of pain in left upper quadrant. 13:15 GI: Patient currently denies nausea, vomiting, since monday. 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 - Social history:: Smoking status: . - Ebola Screening: : Patient denies travel to an Ebola-affected area in the 21 days before illness onset. Screenin:25 Abuse screen: Denies threats or abuse. Denies injuries from another. Nutritional aj1 screening: No deficits noted. Tuberculosis screening: No symptoms or risk factors identified. 15:25 Fall Risk None identified. aj1 Assessment: 13:25 General: Appears in no apparent distress. comfortable, Behavior is calm, cooperative, aj1 appropriate for age. Pain: Complains of pain in left upper quadrant. Neuro: Level of Consciousness is awake, alert, obeys commands, Oriented to person, place, time, situation. Cardiovascular: Patient's skin is warm and dry. Respiratory: Airway is patent Respiratory effort is even, unlabored, Respiratory pattern is regular, symmetrical. GI: Abdomen is flat, non-distended, Abd is soft X 4 quads Abdomen is tender to palpation in left upper quadrant Reports upper abdominal pain, Patient currently denies diarrhea, nausea, tolerance of food, Patient states that she had some vomiting on Monday, but none today or yesterday. Patient reports that she was seen in this emergency room last night for the same pain, she had blood work done but decided to leave prior to having imaging done because it was late and she had to get up early this morning. Patient states that she was still having pain this morning so she decided to come back to the ER. : No signs and/or symptoms were reported regarding the genitourinary system. EENT: No signs and/or symptoms were reported regarding the EENT system. Derm: No signs and/or symptoms reported regarding the dermatologic system. Skin is pink, warm \T\ dry. normal. Musculoskeletal: No signs and/or symptoms reported regarding the musculoskeletal system. Circulation, motion, and sensation intact. 13:55 Reassessment: Patient taken to CT via wheelchair. aj1 14:01 Reassessment: Patient brought back to room by airframe technician, patient needs an IV for contrast.aj1 14:16 Reassessment: Patient taken to CT via wheelchair. aj1 14:45 Reassessment: Patient appears in no apparent distress at this time. No changes from aj1 previously documented assessment. Patient and/or family updated on plan of care and expected duration. Pain level reassessed. Patient is alert, oriented x 3, equal unlabored respirations, skin warm/dry/pink. 15:21 Reassessment: Patient discharge pending Dr. Torres talking to patient about results. aj1 15:24 Reassessment: Dr. Torres at bedside. aj1 Vital Signs: 13:13 BP 96 / 69; Pulse 75; Resp 17; Temp 97.9(O); Pulse Ox 100% on R/A; Weight 58.97 kg (R); tw2 Height 5 ft. 6 in. (167.64 cm); Pain 8/10; 13:13 Body Mass Index 20.98 (58.97 kg, 167.64 cm) tw2 ED Course: 13:07 Patient arrived in ED. rg4 13:13 Triage completed. tw2 13:13 Arm band placed on. tw2 13:16 Justin Torres MD is Attending Physician. gs 13:18 Agnes Garcia RN is Primary Nurse. aj1 13:25 Patient has correct armband on for positive identification. Bed in low position. Call aj1 light in reach. Side rails up X 1. 13:25 No provider procedures requiring assistance completed. aj1 14:02 Inserted saline lock: 20 gauge in right antecubital area, using aseptic technique. aj1 14:25 CT Abd/Pelvis - W/Contrast In Process Unspecified. EDMS 14:55 Ti Reinoso MD is Referral Physician. gs 15:24 IV discontinued, intact, bleeding controlled, No redness/swelling at site. Pressure aj1 dressing applied. Administered Medications: No medications were administered Outcome: 15:00 Discharge ordered by . gs 15:25 Discharged to home ambulatory. aj1 15:25 Condition: good 15:25 Discharge instructions given to patient, Instructed on discharge instructions, follow up and referral plans. Demonstrated understanding of instructions, follow-up care. 15:25 Patient left the ED. aj1 Signatures: Dispatcher [employer] EDMI Agnes Garcia RN RN aj1 Rowena Villalpando RN RN tw2 Carolynn Matson rg4 Justin Torres MD MD gs
--- NOTE | 2018-11-13 15:00 | EDPHYS ---
Physician Documentation [facility] Name: Rubina Martinez Age: 23 yrs Sex: Female : 1995 Arrival Date: 11/13/2018 Time: 13:07 Bed 23 Private MD: ED Physician Justin Torres HPI: 11/13 14:52 This 23 yrs old Female presents to ER via Ambulatory with complaints of gs Abdominal Pain. 14:52 The patient presents with abdominal pain in the left upper quadrant. Onset: The gs symptoms/episode began/occurred gradually, 3 week(s) ago. The symptoms do not radiate. Associated signs and symptoms: Pertinent negatives: diarrhea. The symptoms are described as crampy. Modifying factors: the symptoms are aggravated by movement, touching the area. Severity of pain: At its worst the pain was moderate in the emergency department the pain is unchanged. The patient has experienced similar episodes in the past, multiple times. 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 - Social history:: Smoking status: . - Ebola Screening: : Patient denies travel to an Ebola-affected area in the 21 days before illness onset. ROS: 14:52 All other systems are negative. gs Exam: 14:52 Head/Face: Normocephalic, atraumatic. Eyes: Pupils equal round and reactive to light, gs extra-ocular motions intact. Lids and lashes normal. Conjunctiva and sclera are non-icteric and not injected. Cornea within normal limits. Periorbital areas with no swelling, redness, or edema. ENT: Nares patent. No nasal discharge, no septal abnormalities noted. Tympanic membranes are normal and external auditory canals are clear. Oropharynx with no redness, swelling, or masses, exudates, or evidence of obstruction, uvula midline. Mucous membranes moist. Neck: Trachea midline, no thyromegaly or masses palpated, and no cervical lymphadenopathy. Supple, full range of motion without nuchal rigidity, or vertebral point tenderness. No Meningismus. Chest/axilla: Normal chest wall appearance and motion. Nontender with no deformity. No lesions are appreciated. Cardiovascular: Regular rate and rhythm with a normal S1 and S2. No gallops, murmurs, or rubs. Normal PMI, no JVD. No pulse deficits. Respiratory: Lungs have equal breath sounds bilaterally, clear to auscultation and percussion. No rales, rhonchi or wheezes noted. No increased work of breathing, no retractions or nasal flaring. Back: No spinal tenderness. No costovertebral tenderness. Full range of motion. Skin: Warm, dry with normal turgor. Normal color with no rashes, no lesions, and no evidence of cellulitis. MS/ Extremity: Pulses equal, no cyanosis. Neurovascular intact. Full, normal range of motion. Neuro: Awake and alert, GCS 15, oriented to person, place, time, and situation. Cranial nerves II-XII grossly intact. Motor strength 5/5 in all extremities. Sensory grossly intact. Cerebellar exam normal. Normal gait. 14:52 Constitutional: The patient appears alert, awake. 14:52 Abdomen/GI: Palpation: moderate abdominal tenderness, in the left upper quadrant, rebound tenderness, is not appreciated. Vital Signs: 13:13 BP 96 / 69; Pulse 75; Resp 17; Temp 97.9(O); Pulse Ox 100% on R/A; Weight 58.97 kg (R); tw2 Height 5 ft. 6 in. (167.64 cm); Pain 8/10; 13:13 Body Mass Index 20.98 (58.97 kg, 167.64 cm) tw2 MDM: 13:40 Patient medically screened. gs 14:52 Differential diagnosis: appendicitis, bowel obstruction, gastritis, non-specific abd gs pain. Data reviewed: vital signs, nurses notes, old medical records, lab test result(s), radiologic studies. Counseling: I had a detailed discussion with the patient and/or guardian regarding: the historical points, exam findings, and any diagnostic results supporting the discharge/admit diagnosis, lab results, radiology results, the need for outpatient follow up. Response to treatment: the patient's symptoms have mildly improved after treatment, and as a result, I will discharge patient. 11/13 13:40 Order name: CT Abd/Pelvis - W/Contrast; Complete Time: 14:49 gs Administered Medications: No medications were administered Disposition: 11/13/18 15:00 Discharged to Home. Impression: Pain localized to upper abdomen, Left upper quadrant abdominal tenderness. - Condition is Stable. - Discharge Instructions: Abdominal Pain, Adult. - Work release form, Medication Reconciliation Form, Thank You Letter, Antibiotic Education, Prescription Opioid Use form. - Follow up: Ti Reinoso MD; When: 2 - 3 days; Reason: Re-evaluation by your physician. Signatures: Dispatcher [employer] EDAgnes Ramirez RN RN aj1 Rowena Villalpando RN RN tw2 Justin Torres MD MD gs Corrections: (The following items were deleted from the chart) 15:25 15:00 11/13/2018 15:00 Discharged to Home. Impression: Pain localized to upper abdomen; aj1 Left upper quadrant abdominal tenderness. Condition is Stable. Forms are Medication Reconciliation Form, Thank You Letter, Antibiotic Education, Prescription Opioid Use. Follow up: Ti Reinoso; When: 2 - 3 days; Reason: Re-evaluation by your physician. gs
[2018-11-13 15:32] VITALS: BP 96/69; TEMP 97.9; O2SAT 100
== END 2018-11-13 15:25 | disposition home or self-care (01) ==
LOC: ER 13:05
DX: R10.812 Left upper quadrant abdominal tenderness (principal)
CPT/HCPCS: 74177; Q9967

== ENCOUNTER 2019-03-25 18:08 | Emergency (ER) | payer BC ==
--- NOTE | 2019-03-25 18:52 | RAD REPORT ---
EXAM DESCRIPTION: CT - Ct Stroke Brain Wo Cont - 03/25/2019 6:37 pm CLINICAL HISTORY: Blurred vision, headache, stroke protocol exam COMPARISON: March 2009 TECHNIQUE: Axial 5 millimeter thick images of the head were obtained without IV contrast. All CT scans are performed using dose optimization technique as appropriate and may include automated exposure control or mA/KV adjustment according to patient size. FINDINGS: No intracranial hemorrhage, mass, or cerebral edema. No acute infarction identifiable. No extra-axial fluid collections. Zaldivar matter-white matter differentiation is preserved. Visualized portions of the mastoid air cells, paranasal sinuses, and orbits are unremarkable. Findings telephoned to the emergency department 1846 hours IMPRESSION: No CT evidence of acute intracranial process.
[2019-03-25 19:05] LABS: Basophils % 0.8 % (0-1.3); Hematocrit 33.8 % (36.0-45.0); Lymphocytes % 40.4 % (15.3-44.8); MPV 9.8 fL (7.6-11.3); RBC Red Blood Cell Count 4.55 M/uL (3.86-4.86)
[2019-03-25] MEDS ORDERED: ONDANSETRON 4 MG/2 ML VIAL ONE (19:10)
[2019-03-25] MEDS ORDERED: IBUPROFEN 200 MG TAB PO ONE (19:10)
[2019-03-25] MEDS ORDERED: IBUPROFEN 400 MG TAB ONE (19:10)
[2019-03-25 19:11] LABS: Protime INR 1.09
--- NOTE | 2019-03-25 19:22 | RAD REPORT ---
EXAM DESCRIPTION: RAD - Chest Single View - 03/25/2019 6:52 pm CLINICAL HISTORY: Left arm numbness, Stroke protocol chest film COMPARISON: August 2014 TECHNIQUE: AP portable chest image was obtained 1849 hours . FINDINGS: Lungs are clear. Heart and vasculature are normal. No measurable pleural effusion and no p neumothorax. No acute bony abnormality seen. No acute aortic findings suspected. IMPRESSION: No acute cardiopulmonary process. No significant interval change.
[2019-03-25 19:25] LABS: BUN Blood Urea Nitrogen 11 mg/dL (7-18); Bicarbonate 28 mmol/L (21-32); Glucose Level 87 mg/dL (74-106); Potassium 3.9 mmol/L (3.5-5.1); Sodium Level 142 mmol/L (136-145)
[2019-03-25] MEDS ORDERED: MORPHINE 2 MG/ML SYR ONE (19:55)
[2019-03-25] MEDS ORDERED: LIDOCAINE 2% MPF 5 ML VIAL ONE (20:06)
[2019-03-25] MEDS ORDERED: FENTANYL CITR 100 MCG/2 ML ONE (21:00)
[2019-03-25 21:26] LABS: Appearance CLEAR (CLEAR); Body Fluid Source CSF; Body Fluid WBC 1 /mm^3; Color of fluid Colorless (COLORLESS); Fluid Total Volume 10.5 ml
[2019-03-25 21:28] LABS: Body Fluid Source CSF
[2019-03-25 21:29] LABS: Appearance CLEAR (CLEAR); Body Fluid WBC 3 /mm^3; Color of fluid Colorless (COLORLESS)
[2019-03-25 21:34] LABS: CSF Glucose 52 mg/dL (40-70)
--- NOTE | 2019-03-25 23:05 | ER ---
Nurse's Notes [facility] Name: Rubina Martinez Age: 23 yrs Sex: Female : 1995 Arrival Date: 03/25/2019 Time: 18:12 Bed 15 Private MD: Diagnosis: Hemiplegic migraine, intractable, with status migrainosus Presentation: 03/25 18:18 Presenting complaint: Patient states: About an hour and a half ago I was sitting at [facility] watching TV and my vision started going blurry in both eyes for about 20 minutes and then I got a headache. My vision is a better but still a little blurry. About thirty minutes ago my lips and my left arm started to go numb. I also feel like I am going to pass out. Transition of care: patient was not received from another setting of care. Onset of symptoms was March 25, 2019. Risk Assessment: Do you want to hurt yourself or someone else? Patient reports no desire to harm self or others. Initial Sepsis Screen: Does the patient meet any 2 criteria? No. Patient's initial sepsis screen is negative. Does the patient have a suspected source of infection? No. Patient's initial sepsis screen is negative. Care prior to arrival: None. 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 - Social history:: Smoking status: Patient/guardian denies using tobacco. - Ebola Screening: : No symptoms or risks identified at this time. Screenin:31 VAN Screening: Arm Drift: Patient shows no arm weakness. Patient is VAN negative. la1 18:41 Abuse screen: Denies threats or abuse. Nutritional screening: No deficits noted. la1 Tuberculosis screening: No symptoms or risk factors identified. The patient has not been NPO before screening. The patient is alert, able to follow commands. The patient does not exhibit slurred or garbled speech The patient is not exhibiting difficulty speaking. The patient does not exhibit difficulty understanding words. The patient is able to swallow own secretions with no drooling or need for suction. Patient tolerated one teaspoon of water. No drooling, immediate coughing, gurgling, or clearing of the throat was noted. The patient tolerated 90mL of water. No drooling, immediate coughing, gurgling, or clearing of the throat was noted. The patient passed the bedside swallow screening. Oral medications may be given as ordered. Contact Physician for further diet orders. Provider notified of bedside swallow screening results: Levi Garcia MD. Fall Risk None identified. Assessment: 18:31 General: Appears in no apparent distress. Behavior is calm, cooperative. Pain: la1 Complains of pain in Pt states she has a severe headache. Neuro: Level of Consciousness is awake, alert, obeys commands, Oriented to person, place, time, situation, Linen Room Custodian are equal bilaterally Moves all extremities. Full function Gait is steady, Speech is normal, Facial symmetry appears normal, Pupils are PERRLA, Numbness in left arm. Cardiovascular: Capillary refill < 3 seconds Patient's skin is warm and dry. Respiratory: Airway is patent Respiratory effort is even, unlabored, Respiratory pattern is regular, symmetrical. GI: Abdomen is round non-distended. : No signs and/or symptoms were reported regarding the genitourinary system. Musculoskeletal: Circulation, motion, and sensation intact. Range of motion: intact in all extremities. 19:15 General: Appears in no apparent distress. Behavior is calm, cooperative. Pain: ea Complains of pain in forehead, right yazidi and left yazidi. Neuro: Level of Consciousness is awake, alert, obeys commands, Oriented to person, place, time, situation, Speech is normal. Cardiovascular: Patient's skin is warm and dry. Respiratory: Airway is patent Respiratory effort is even, unlabored, Respiratory pattern is regular, symmetrical. Musculoskeletal: Circulation, motion, and sensation intact. 20:30 Reassessment: Patient and/or family updated on plan of care and expected duration. Pain ea level reassessed. Patient is alert, oriented x 3, equal unlabored respirations, skin warm/dry/pink. 22:53 Reassessment: Report called to Cahd DAI at [place] [facility]. ea 03/26 00:01 Reassessment: Patient and/or family updated on plan of care and expected duration. Pain ea level reassessed. Patient is alert, oriented x 3, equal unlabored respirations, skin warm/dry/pink. Report given to [facility]. Pt left via stretcher per EMS, pt tolerating well. No s/s of pain or discomfort noted at this time. Vital Signs: 03/25 18:20 BP 116 / 74; Pulse 73; Resp 16; Temp 97.4; Pulse Ox 100% on R/A; Weight 58.97 kg; la1 Height 5 ft. 5 in. (165.10 cm); 20:32 BP 103 / 64; Pulse 53; Resp 18; Pulse Ox 100% on R/A; ea 21:15 BP 112 / 61; Pulse 57; Resp 18; Pulse Ox 99% on R/A; ea 22:45 BP 107 / 58; Pulse 60; Resp 18; Temp 97.6; Pulse Ox 98% on R/A; ea 23:50 BP 113 / 58; Pulse 60; Resp 18; Temp 97.6; Pulse Ox 99% on R/A; ea 18:20 Body Mass Index 21.63 (58.97 kg, 165.10 cm) la1 NIH Stroke Scale Scores: 18:31 NIHSS Score: 0 la1 18:47 NIHSS Score: 2 kdr ED Course: 18:12 Patient arrived in ED. mr 18:20 Triage completed. la1 18:21 Arm band placed on left wrist. la1 18:29 Ritchie Nugent RN is Primary Nurse. la1 18:30 Levi Garcia MD is Attending Physician. kdr 18:32 Patient has correct armband on for positive identification. Call light in reach. Side la1 rails up X 1. 18:39 CT Stroke Brain w/o Contrast In Process Unspecified. EDMS 18:40 Inserted saline lock: 20 gauge in right antecubital area, using aseptic technique. la1 Blood collected. 18:45 EKG done, by ED staff, reviewed by Levi Garcia MD. 5 18:57 Stroke CXR 1 View In Process Unspecified. EDMS 19:24 Primary Nurse role handed off by Ritchie Nugent RN ea 19:24 Linn Caruso RN is Primary Nurse. ea 21:00 Assist provider with lumbar puncture: Set up LP tray. Performed by Levi Garcia MD CSF ea is clear. Sample sent to lab. Puncture site dressed with band aid, Procedure was successful. Patient tolerated well. 03/26 00:15 Patient transferred, IV remains in place. ea 05:48 Primary Nurse role handed off by Linn Caruso, RN tw4 Administered Medications: 03/25 19:16 Drug: Zofran 4 mg Route: IVP; Site: right antecubital; la1 20:30 Drug: morphine 2 mg Route: IVP; Site: right antecubital; ea 21:00 Follow up: Response: No adverse reaction; Pain is decreased; RASS: Alert and Calm (0) ea 21:02 Drug: fentaNYL (PF) 25 mcg {Note: RASS 1.} Route: IVP; Site: right antecubital; ea 21:55 Follow up: Response: No adverse reaction; Pain is decreased; RASS: Alert and Calm (0) ea 22:47 Drug: Motrin 600 mg Route: PO; ea Point of Care Testing: Blood Glucose: 18:40 Blood Glucose: 103 mg/dL; la1 Ranges: Outcome: 23:04 ER care complete, transfer ordered by . tw4 23:05 Instructed on the need for transfer. ea 03/26 00:14 Transferred by ground EMS to [facility], Transfer form completed. ea Condition: stable 00:18 Patient left the ED. ea 05:48 Patient left the ED. tw4 NIH Stroke Scale - NIH Stroke Score Date: 03/25/2019 Time: 18:31 Total Score = 0 1a. Level of Consciousness (LOC) - 0(Alert) 1b. Level of Consciousness (LOC) (Year \T\ Age) - 0(Both) 1c. LOC Commands (Open \T\ Closes Eyes/County Ordinary) - 0(Both) 2. Best Gaze (Lateral Gaze Paresis) - 0(Normal) 3. Visual Field Loss - 0(No visual loss) 4. Facial Palsy - 0(Normal) 5a. Left Arm: Motor (10-second hold) - 0(No drift) 5b. Right Arm: Motor (10-second hold) - 0(No drift) 6a. Left Leg: Motor (5-second hold - always test supine) - 0(No drift) 6b. Right Leg: Motor (5-second hold - always test supine) - 0(No drift) 7. Limb Ataxia (finger/nose \T\ heel/malik - test with eyes open) - 0(Absent) 8. Sensory Loss (pinprick arms/legs/face) - 0(Normal) 9. Best Language: Aphasia (description/naming/reading) - 0(No aphasia) 10. Dysarthria (speech clarity - read or repeat words) - 0(Normal) 11. Extinction and Inattention (visual/tactile/auditory/spatial/personal) - 0(No abnormality) Initials: la1 NIH Stroke Scale - NIH Stroke Score Date: 03/25/2019 Time: 18:47 Total Score = 2 1a. Level of Consciousness (LOC) - 1(Not Alert) 1b. Level of Consciousness (LOC) (Year \T\ Age) - 0(Both) 1c. LOC Commands (Open \T\ Closes Eyes/[place] Ord[place]) - 0(Both) 2. Best Gaze (Lateral Gaze Paresis) - 0(Normal) 3. Visual Field Loss - 0(No visual loss) 4. Facial Palsy - 0(Normal) 5a. Left Arm: Motor (10-second hold) - 0(No drift) 5b. Right Arm: Motor (10-second hold) - 0(No drift) 6a. Left Leg: Motor (5-second hold - always test supine) - 0(No drift) 6b. Right Leg: Motor (5-second hold - always test supine) - 0(No drift) 7. Limb Ataxia (finger/nose \T\ heel/malik - test with eyes open) - 1(Present in one limb) 8. Sensory Loss (pinprick arms/legs/face) - 0(Normal) 9. Best Language: Aphasia (description/naming/reading) - 0(No aphasia) 10. Dysarthria (speech clarity - read or repeat words) - 0(Normal) 11. Extinction and Inattention (visual/tactile/auditory/spatial/personal) - 0(No abnormality) Initials: kdr Signatures: Dispatcher [employer] Levi Noel MD MD kdr Rivera, Josiane mr Raffi, Ritchie, RN RN la1 Cathie Parada Maria mh5 Antunez, Elena, RN RN ea Wadley, Terrence, MD MD tw4 Corrections: (The following items were deleted from the chart) 03/25 18:26 18:18 Acuity: ARYAN 3 la1 la1 21:25 20:32 BP 103 / 64; jd2 ea 22:54 22:53 Reassessment: Report called to Chad DAI at [facility]
--- NOTE | 2019-03-25 23:06 | EDPHYS ---
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 - Social history:: Smoking status: Patient/guardian denies using tobacco. - Ebola Screening: : No symptoms or risks identified at this time. Exam: 18:47 Constitutional: This is a well developed, well nourished patient who is awake, alert, kdr and in no acute distress. 18:47 Neuro: CT Negative per Dr. Garcia 18:45. Vital Signs: 18:20 BP 116 / 74; Pulse 73; Resp 16; Temp 97.4; Pulse Ox 100% on R/A; Weight 58.97 kg; la1 Height 5 ft. 5 in. (165.10 cm); 20:32 BP 103 / 64; Pulse 53; Resp 18; Pulse Ox 100% on R/A; ea 21:15 BP 112 / 61; Pulse 57; Resp 18; Pulse Ox 99% on R/A; ea 22:45 BP 107 / 58; Pulse 60; Resp 18; Temp 97.6; Pulse Ox 98% on R/A; ea 23:50 BP 113 / 58; Pulse 60; Resp 18; Temp 97.6; Pulse Ox 99% on R/A; ea 18:20 Body Mass Index 21.63 (58.97 kg, 165.10 cm) la1 NIH Stroke Scale Scores: 18:31 NIHSS Score: 0 la1 18:47 NIHSS Score: 2 kdr MDM: 23:03 Patient medically screened. tw4 03/25 18:30 Order name: Basic Metabolic Panel; Complete Time: 19:30 la03/25 18:30 Order name: CBC with Diff; Complete Time: 21:31 la03/25 18:30 Order name: Protime (+inr); Complete Time: 19:30 03/25 18:30 Order name: Ptt, Activated; Complete Time: 19:30 03/25 18:30 Order name: Basic Metabolic Panel 03/25 18:30 Order name: CBC with Diff 03/25 18:30 Order name: Protime (+inr) or03/25 18:30 Order name: Ptt, Activated la03/25 20:58 Order name: Csf Culture em03/25 20:58 Order name: Fluid Cell Count,Body 03/25 20:58 Order name: Spinal Fluid Profile 03/25 21:18 Order name: Miscellaneous Test Lab EDCT 03/25 18:30 Order name: EKG; Complete Time: 18:31 03/25 18:30 Order name: Accucheck; Complete Time: 18:41 03/25 18:30 Order name: Cardiac monitoring; Complete Time: 18:50 03/25 18:30 Order name: EKG - Nurse/Tech; Complete Time: 18:41 03/25 18:30 Order name: IV Saline Lock; Complete Time: 18:41 03/25 18:30 Order name: Labs collected and sent; Complete Time: 18:41 03/25 18:30 Order name: NPO; Complete Time: 18:41 03/25 18:30 Order name: O2 Per Protocol; Complete Time: 18:41 03/25 18:30 Order name: CT Stroke Brain w/o Contrast; Complete Time: 19:30 03/25 18:30 Order name: Stroke CXR 1 View; Complete Time: 21:31 03/25 18:30 Order name: O2 Sat Monitoring; Complete Time: 18:41 03/25 18:30 Order name: Stroke Swallow Screen; Complete Time: 18:41 03/25 19:37 Order name: Lumbar Puncture Consent; Complete Time: 20:57 kdr 03/25 19:37 Order name: Lumbar Puncture Setup; Complete Time: 20:57 kdr Administered Medications: 19:16 Drug: Zofran 4 mg Route: IVP; Site: right antecubital; la1 20:30 Drug: morphine 2 mg Route: IVP; Site: right antecubital; ea 21:00 Follow up: Response: No adverse reaction; Pain is decreased; RASS: Alert and Calm (0) ea 21:02 Drug: fentaNYL (PF) 25 mcg {Note: RASS 1.} Route: IVP; Site: right antecubital; ea 21:55 Follow up: Response: No adverse reaction; Pain is decreased; RASS: Alert and Calm (0) ea 22:47 Drug: Motrin 600 mg Route: PO; ea Point of Care Testing: Blood Glucose: 18:40 Blood Glucose: 103 mg/dL; la1 Ranges: Critical Glucose Levels:Adult <50 mg/dl or >400 mg/dl <40 mg/dl or >180 mg/dl Disposition: 03/25/19 23:04 Transfer ordered to [facility]. Diagnosis is Hemiplegic migraine, intractable, with status migrainosus. - Reason for transfer: Higher level of care. - Accepting physician is Dr Diann Higgins. - Condition is Stable. - Problem is new. - Symptoms are unchanged. NIH Stroke Scale - NIH Stroke Score Date: 03/25/2019 Time: 18:31 Total Score = 0 1a. Level of Consciousness (LOC) - 0(Alert) 1b. Level of Consciousness (LOC) (Year \T\ Age) - 0(Both) 1c. LOC Commands (Open \T\ Closes Eyes/Surgical Appliances Salesperson) - 0(Both) 2. Best Gaze (Lateral Gaze Paresis) - 0(Normal) 3. Visual Field Loss - 0(No visual loss) 4. Facial Palsy - 0(Normal) 5a. Left Arm: Motor (10-second hold) - 0(No drift) 5b. Right Arm: Motor (10-second hold) - 0(No drift) 6a. Left Leg: Motor (5-second hold - always test supine) - 0(No drift) 6b. Right Leg: Motor (5-second hold - always test supine) - 0(No drift) 7. Limb Ataxia (finger/nose \T\ heel/malik - test with eyes open) - 0(Absent) 8. Sensory Loss (pinprick arms/legs/face) - 0(Normal) 9. Best Language: Aphasia (description/naming/reading) - 0(No aphasia) 10. Dysarthria (speech clarity - read or repeat words) - 0(Normal) 11. Extinction and Inattention (visual/tactile/auditory/spatial/personal) - 0(No abnormality) Initials: la1 NIH Stroke Scale - NIH Stroke Score Date: 03/25/2019 Time: 18:47 Total Score = 2 1a. Level of Consciousness (LOC) - 1(Not Alert) 1b. Level of Consciousness (LOC) (Year \T\ Age) - 0(Both) 1c. LOC Commands (Open \T\ Closes Eyes/Surgical Appliances Salesperson) - 0(Both) 2. Best Gaze (Lateral Gaze Paresis) - 0(Normal) 3. Visual Field Loss - 0(No visual loss) 4. Facial Palsy - 0(Normal) 5a. Left Arm: Motor (10-second hold) - 0(No drift) 5b. Right Arm: Motor (10-second hold) - 0(No drift) 6a. Left Leg: Motor (5-second hold - always test supine) - 0(No drift) 6b. Right Leg: Motor (5-second hold - always test supine) - 0(No drift) 7. Limb Ataxia (finger/nose \T\ heel/malik - test with eyes open) - 1(Present in one limb) 8. Sensory Loss (pinprick arms/legs/face) - 0(Normal) 9. Best Language: Aphasia (description/naming/reading) - 0(No aphasia) 10. Dysarthria (speech clarity - read or repeat words) - 0(Normal) 11. Extinction and Inattention (visual/tactile/auditory/spatial/personal) - 0(No abnormality) Initials: kdr Signatures: Dispatcher [employer] EDMS Levi Garcia MD MD [facility] Ritchie Nugent RN RN la1 Antunez, Elena, RN RN ea Wadley, Terrence, MD MD tw4 Corrections: (The following items were deleted from the chart) 18:33 18:30 Accucheck ordered. la1 la1 18:33 18:30 Cardiac monitoring ordered. la1 la1 18:33 18:30 O2 Sat Monitoring ordered. la1 la1 18:33 18:30 Stroke Swallow Screen ordered. la1 la1 18:34 18:30 EKG - Nurse/Tech ordered. la1 la1 18:34 18:30 IV Saline Lock ordered. la1 la1 18:34 18:30 Labs collected and sent ordered. la1 la1 18:34 18:30 NPO ordered. la1 la1 18:34 18:30 Oxygen Per Protocol ordered. la1 la1 18:39 18:31 CT-STROKE BRAIN W/O CONTRAST+CT.RAD.BRZ ordered. EDCT EDMS 18:39 18:31 Chest Single View+RAD.RAD.BRZ ordered. EDCT EDMS 21:17 20:59 CSF Bacterial Antigens (Tube 1+BA.LAB.BRZ [facility]. [facility]18 0909 23:04 03/25/2019 23:04 Transfer ordered to [facility]. Diagnosis is Hemiplegic migraine, intractable, with status migrainosus. Reason for transfer: Higher level of care. Accepting physician is Dr Diann Higgins. Condition is Stable. Problem is new. Symptoms are unchanged. [facility] 03/26 05:48 00:18 03/25/2019 23:04 Transfer ordered to [address] Diagnosis is Hemiplegic migraine, intractable, with status migrainosus. Reason for transfer: Higher level of care. Accepting physician is Dr Diann Higgins. Condition is Stable. Problem is new. Symptoms are unchanged. ea
[2019-03-26 01:28] VITALS: TEMP 97.6
[2019-03-26 01:29] VITALS: BP 113/58; O2SAT 99
--- NOTE | 2019-03-26 10:37 | EKG ---
Test Date: 2019-03-25 Test Time: 18:38:58 Body Mechanic: ERI MEASUREMENT RESULTS: Intervals: Rate: 64 CT: 154 QRSD: 78 QT: 394 QTc: 406 [place]: P: 21 CT: 154 QRS: 62 T: 45 INTERPRETIVE STATEMENTS: Normal sinus rhythm with sinus arrhythmia Normal ECG Compared to ECG 08/26/2017 21:54:09 Sinus tachycardia no longer present Electronically Signed On 03-26-19 10:36:37 CDT by Des Osei
== END 2019-03-26 05:48 | disposition short-term general hospital (02) ==
LOC: ER 18:08
DX: G43.411 Hemiplegic migraine, intractable, with status migrainosus (principal)
CPT/HCPCS: 93005; 87070; 85025; 80048; 36415; 89050 ×2; 84157; 85610; 82945; 82962; 85730; 70450; 71045; J3010; J2270; J2405; 62270; 96374; 96375; 99285

== ENCOUNTER 2020-11-15 03:19 | Emergency (ER) | payer SELFPAY ==
[2020-11-15] MEDS ORDERED: ACETAMINOPHEN 500 MG TAB ONE (04:36)
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
[2020-11-15 05:24] VITALS: TEMP 98.2
[2020-11-15 05:37] VITALS: BP 121/70; O2SAT 99
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
== END 2020-11-15 05:29 | disposition home or self-care (01) ==
LOC: ER 03:19
DX: S00.83XA Contusion of other part of head, initial encounter (principal); Y00.XXXA Assault by blunt object, initial encounter; F17.290 Nicotine dependence, other tobacco product, uncomplicated
CPT/HCPCS: 70450; 72125; 99284; G0390

== ENCOUNTER 2020-12-23 22:01 | Emergency (ER) | payer SELFPAY ==
--- NOTE | 2020-12-24 01:54 | ER ---
Nurse's Notes [facility] Name: Rubina Martinez Age: 25 yrs Sex: Female : 1995 Arrival Date: 12/23/2020 Time: 22:02 Bed 20 Private MD: Diagnosis: Diarrhea, unspecified;Cough Presentation: 12/23 22:27 Chief complaint: Patient states: headache along with generalized body aches x1 day. ak2 Coronavirus screen: Client denies travel out of the [place] in the last 14 days. Ebola Screen: Patient negative for fever greater than or equal to 101.5 degrees Fahrenheit, and additional compatible Ebola Virus Disease symptoms Patient denies exposure to infectious person. Patient denies travel to an Ebola-affected area in the 21 days before illness onset. No symptoms or risks identified at this time. Initial Sepsis Screen: Does the patient meet any 2 criteria? No. Patient's initial sepsis screen is negative. Does the patient have a suspected source of infection? No. Patient's initial sepsis screen is negative. Risk Assessment: Do you want to hurt yourself or someone else? Patient reports no desire to harm self or others. Onset of symptoms was December 22, 2020. 22:27 Method Of Arrival: Ambulatory ak2 22:27 Acuity: ARYAN 3 ak2 Triage Assessment: 22:29 General: Appears in no apparent distress. Behavior is calm, cooperative. Pain: ak2 Complains of pain in face and scalp. Historical: - Allergies: 22:29 No Known Allergies; ak2 - Immunization history:: Adult Immunizations up to date. - Social history:: Smoking status: unknown. - Family history:: not pertinent. Screenin:42 Abuse screen: Denies threats or abuse. Nutritional screening: No deficits noted. lc1 Tuberculosis screening: No symptoms or risk factors identified. Fall Risk None identified. Assessment: 23:42 General: Appears in no apparent distress. comfortable, Behavior is calm, cooperative. lc1 Pain: Complains of pain in scalp and face Pain currently is 8 out of 10 on a pain scale. Quality of pain is described as throbbing. Neuro: No deficits noted. Cardiovascular: No deficits noted. Respiratory: No deficits noted. GI: Reports diarrhea, nausea. : No signs and/or symptoms were reported regarding the genitourinary system. EENT: No signs and/or symptoms were reported regarding the EENT system. Derm: No signs and/or symptoms reported regarding the dermatologic system. Musculoskeletal: No signs and/or symptoms reported regarding the musculoskeletal system. 12/24 00:30 Reassessment: No changes from previously documented assessment. Patient and/or family lc1 updated on plan of care and expected duration. Pain level reassessed. Patient is alert, oriented x 3, equal unlabored respirations, skin warm/dry/pink. 01:29 Reassessment: No changes from previously documented assessment. Patient and/or family lc1 updated on plan of care and expected duration. Pain level reassessed. Patient is alert, oriented x 3, equal unlabored respirations, skin warm/dry/pink. Vital Signs: 12/23 22:27 BP 102 / 44; Pulse 77; Resp 20; Temp 99.2(O); Pulse Ox 100% on R/A; Weight 58.97 kg; ak2 Height 5 ft. 6 in. (167.64 cm); 23:42 BP 105 / 52; Pulse 63; Resp 18; Pulse Ox 100% on R/A; lc1 12/24 00:30 BP 90 / 45; Pulse 66; Resp 18; Pulse Ox 100% on R/A; lc1 02:20 BP 98 / 50; Pulse 60; Resp 16; Pulse Ox 100% on R/A; ak2 12/23 22:27 Body Mass Index 20.98 (58.97 kg, 167.64 cm) ak2 ED Course: 12/23 22:02 Patient arrived in ED. cf2 22:29 Triage completed. ak2 23:13 Elliot Astudillo MD is Attending Physician. alvina 23:42 Rebecca Stoddard is Primary Nurse. lc1 23:42 Bed in low position. Call light in reach. Pulse ox on. NIBP on. 1 12/24 00:30 No apparent distress. Awaiting lab results. 1 00:30 No provider procedures requiring assistance completed. Patient did not have IV access lc1 during this emergency room visit. Administered Medications: No medications were administered Outcome: 01:53 Discharge ordered by . alvina 02:20 Discharged to home ambulatory. ak2 02:20 Condition: good 02:20 Discharge instructions given to patient, Prescriptions given X 2. 02:21 Patient left the ED. ak2 Signatures: Elliot Astudillo MD MD cha [place], Lisa lc1 Bisi Ramsey 2 Rob Torres pr2
--- NOTE | 2020-12-24 01:55 | EDPHYS ---
Physician Documentation [facility] Name: Rubina Martinez Age: 25 yrs Sex: Female : 1995 Arrival Date: 12/23/2020 Time: 22:02 Bed 20 Private MD: ED Physician Elliot Astudillo HPI: 12/23 23:52 This 25 yrs old Female presents to ER via Ambulatory with complaints of alvina Diarrhea, Headache, Sore Throat, Cough. 23:52 The patient presents to the emergency department with nausea, vomiting, that is alvina continuous. Onset: The symptoms/episode began/occurred 2 day(s) ago. Possible causes: unknown. The symptoms are aggravated by nothing. The symptoms are alleviated by nothing. Associated signs and symptoms: The patient has no apparent associated signs or symptoms. Severity of symptoms: At their worst the symptoms were mild in the emergency department the symptoms are unchanged. The patient has not experienced similar symptoms in the past. Historical: - Allergies: 22:29 No Known Allergies; ak2 - Immunization history:: Adult Immunizations up to date. - Social history:: Smoking status: unknown. - Family history:: not pertinent. ROS: 23:52 Constitutional: Negative for fever, chills, and weight loss, Eyes: Negative for injury, alvina pain, redness, and discharge, ENT: Negative for injury, pain, and discharge, Neck: Negative for injury, pain, and swelling, Cardiovascular: Negative for chest pain, palpitations, and edema, Respiratory: Negative for shortness of breath, cough, wheezing, and pleuritic chest pain, Abdomen/GI: Negative for abdominal pain, nausea, vomiting, diarrhea, and constipation, Back: Negative for injury and pain, : Negative for injury, bleeding, discharge, and swelling, MS/Extremity: Negative for injury and deformity, Skin: Negative for injury, rash, and discoloration, Neuro: Negative for headache, weakness, numbness, tingling, and seizure, Psych: Negative for depression, anxiety, suicide ideation, homicidal ideation, and hallucinations, Allergy/Immunology: Negative for hives, rash, and allergies, Endocrine: Negative for neck swelling, polydipsia, polyuria, polyphagia, and marked weight changes, Hematologic/Lymphatic: Negative for swollen nodes, abnormal bleeding, and unusual bruising. Exam: 23:52 Constitutional: This is a well developed, well nourished patient who is awake, alert, alvina and in no acute distress. Head/Face: Normocephalic, atraumatic. Eyes: Pupils equal round and reactive to light, extra-ocular motions intact. Lids and lashes normal. Conjunctiva and sclera are non-icteric and not injected. Cornea within normal limits. Periorbital areas with no swelling, redness, or edema. ENT: Nares patent. No nasal discharge, no septal abnormalities noted. Tympanic membranes are normal and external auditory canals are clear. Oropharynx with no redness, swelling, or masses, exudates, or evidence of obstruction, uvula midline. Mucous membranes moist. Neck: Trachea midline, no thyromegaly or masses palpated, and no cervical lymphadenopathy. Supple, full range of motion without nuchal rigidity, or vertebral point tenderness. No Meningismus. Chest/axilla: Normal chest wall appearance and motion. Nontender with no deformity. No lesions are appreciated. Cardiovascular: Regular rate and rhythm with a normal S1 and S2. No gallops, murmurs, or rubs. Normal PMI, no JVD. No pulse deficits. Respiratory: Lungs have equal breath sounds bilaterally, clear to auscultation and percussion. No rales, rhonchi or wheezes noted. No increased work of breathing, no retractions or nasal flaring. Abdomen/GI: Soft, non-tender, with normal bowel sounds. No distension or tympany. No guarding or rebound. No evidence of tenderness throughout. Back: No spinal tenderness. No costovertebral tenderness. Full range of motion. Skin: Warm, dry with normal turgor. Normal color with no rashes, no lesions, and no evidence of cellulitis. MS/ Extremity: Pulses equal, no cyanosis. Neurovascular intact. Full, normal range of motion. Neuro: Awake and alert, GCS 15, oriented to person, place, time, and situation. Cranial nerves II-XII grossly intact. Motor strength 5/5 in all extremities. Sensory grossly intact. Cerebellar exam normal. Normal gait. Psych: Awake, alert, with orientation to person, place and time. Behavior, mood, and affect are within normal limits. 23:52 Musculoskeletal/extremity: DVT Exam: No signs of deep vein thrombosis. no pain, no swelling, no tenderness, negative Homans' sign noted on exam, no appreciated bluish discoloration, no erythema, no increased warmth. Vital Signs: 22:27 BP 102 / 44; Pulse 77; Resp 20; Temp 99.2(O); Pulse Ox 100% on R/A; Weight 58.97 kg; ak2 Height 5 ft. 6 in. (167.64 cm); 23:42 BP 105 / 52; Pulse 63; Resp 18; Pulse Ox 100% on R/A; lc1 12/24 00:30 BP 90 / 45; Pulse 66; Resp 18; Pulse Ox 100% on R/A; lc1 02:20 BP 98 / 50; Pulse 60; Resp 16; Pulse Ox 100% on R/A; ak2 12/23 22:27 Body Mass Index 20.98 (58.97 kg, 167.64 cm) ak2 MDM: 12/23 23:13 Patient medically screened. [facility] 12/23 23:52 Order name: Flu [facility] 12/23 23:52 Order name: Strep [facility] 12/24 01:43 Order name: SARS-COV-2 RT PCR; Complete Time: 01:53 EDMS Administered Medications: No medications were administered Disposition: 12/24/20 01:53 Discharged to Home. Impression: Diarrhea, unspecified, Cough. - Condition is Stable. - Discharge Instructions: Food Choices to Help Relieve Diarrhea, Adult, Diarrhea, Adult, Cool Mist Vaporizer, Diarrhea, Adult, [id number], Cough, Adult, [id number], Cough, Adult. - Prescriptions for Medrol (Will) 4 mg Oral Tablets, Dose Pack - take 1 tablet by ORAL route as directed - follow package instructions; 1 packet. Zithromax 500 mg Oral Tablet - take 1 tablet by ORAL route once daily for 5 days; 5 tablet. - Medication Reconciliation Form, Thank You Letter, Antibiotic Education, Prescription Opioid Use form. - Follow up: Private Physician; When: 2 - 3 days; Reason: Recheck today's complaints, Continuance of care, Re-evaluation by your physician. - Problem is new. - Symptoms have improved. Signatures: Dispatcher [employer] EDMS Elliot Astudillo MD MD cha [place], Anthony ak2 Corrections: (The following items were deleted from the chart) 12/24 00:17 12/23 23:52 CORONAVIRUS+MR.LAB.BRZ ordered. [facility] EDMS 12/24 02:21 01:53 12/24/2020 01:53 Discharged to Home. Impression: Diarrhea, unspecified; Cough. ak2 Condition is Stable. Discharge Instructions: Food Choices to Help Relieve Diarrhea, Adult, Diarrhea, Adult, Cool Mist Vaporizer, Diarrhea, Adult, [id number]-[id number], Cough, Adult, [id number]-[id number], Cough, Adult. Prescriptions for Medrol (Will) 4 mg Oral Tablets, Dose Pack - take 1 tablet by ORAL route as directed - follow package instructions; 1 packet, Zithromax 500 mg Oral Tablet - take 1 tablet by ORAL route once daily for 5 days; 5 tablet. and Forms are Medication Reconciliation Form, Thank You Letter, Antibiotic Education, Prescription Opioid Use. Follow up: Private Physician; When: 2 - 3 days; Reason: Recheck today's complaints, Continuance of care, Re-evaluation by your physician. Problem is new. Symptoms have improved. alvina
[2020-12-24 02:27] VITALS: TEMP 99.2; O2SAT 100
[2020-12-24 02:31] VITALS: BP 98/50
== END 2020-12-24 02:21 | disposition home or self-care (01) ==
LOC: ER 22:01
DX: R19.7 Diarrhea, unspecified (principal); Z20.822 Contact with and (suspected) exposure to COVID-19
CPT/HCPCS: 87070; 87081; 87804; 99283; U0003

== ENCOUNTER 2021-04-07 23:16 | Emergency (ER) | payer SELFPAY ==
[2021-04-08 00:13] LABS: Urine Blood Negative (Negative); Urine Glucose Negative (Negative); Urine Protein Negative (Negative); Urine Specific Gravity 1.025 (1.005-1.030)
[2021-04-08 00:27] LABS: Absolute Lymphocytes (CBC) 1.9 K/uL (0.7-4.9); Basophils % 0.4 % (0-1.3); Hematocrit 26.7 % (36.0-45.0); Lymphocytes % 19.4 % (15.3-44.8); MPV 9.3 fL (7.6-11.3); RBC Red Blood Cell Count 3.48 M/uL (3.86-4.86)
[2021-04-08 01:11] LABS: ALT/SGPT 10 U/L (12-78); AST/SGOT 5 U/L (15-37); Albumin 2.9 g/dL (3.4-5.0); Alkaline Phosphatase 49 U/L (45-117); BUN Blood Urea Nitrogen 5 mg/dL (7-18); Bicarbonate 21 mmol/L (21-32); Bilirubin Direct 0.1 mg/dL (0-0.2); Bilirubin Total 0.4 mg/dL (0.2-1.0); Glucose Level 95 mg/dL (74-106); HCG, Quantitative 4093 mIU/mL (1-3); Lipase 105 U/L (73-393); Potassium 3.4 mmol/L (3.5-5.1); Sodium Level 136 mmol/L (136-145)
--- NOTE | 2021-04-08 02:12 | EDPHYS ---
Physician Documentation [facility] Name: Rubina Martinez Age: 25 yrs Sex: Female : 1995 Arrival Date: 04/07/2021 Time: 23:19 Bed 14 Private MD: ERIN Physician Elliot Astudillo HPI: 04/07 23:33 This 25 yrs old Female presents to ER via Ambulatory with complaints of jmm Abdominal Pain. 23:33 The patient presents with abdominal pain. Onset: The symptoms/episode began/occurred jmm gradually, 2 day(s) ago. The symptoms radiate to left back. Associated signs and symptoms: Pertinent positives: vaginal bleeding, Pertinent negatives: nausea and vomiting, diarrhea. The symptoms are described as achy, crampy, intermittent. Modifying factors: The symptoms are alleviated by nothing, the symptoms are aggravated by nothing. Historical: - Allergies: 23:28 No Known Allergies; df1 - Home Meds: 23:28 None [Active]; df1 - PMHx: 23:28 None; df1 - PSHx: 23:28 None; df1 - Immunization history:: Adult Immunizations up to date, Client reports having NOT received the Covid vaccine. - Social history:: Smoking status: Patient denies any tobacco usage or history of. Patient uses alcohol, only on a social basis. ROS: 23:33 Constitutional: Negative for fever, chills, and weight loss, Cardiovascular: Negative jmm for chest pain, palpitations, and edema, Respiratory: Negative for shortness of breath, cough, wheezing, and pleuritic chest pain. 23:33 Abdomen/GI: Positive for abdominal pain. 23:33 All other systems are negative. Exam: 23:33 Constitutional: This is a well developed, well nourished patient who is awake, alert, jmm and in no acute distress. Head/Face: atraumatic. Eyes: EOMI, no conjunctival erythema appreciated ENT: Moist Mucus Membranes Neck: Trachea midline, Supple Chest/axilla: Normal chest wall appearance and motion. Cardiovascular: Regular rate and rhythm. No edema appreciated Respiratory: Normal respirations, no respiratory distress appreciated 23:33 Back: Normal ROM Skin: General appearance color normal MS/ Extremity: Moves all extremities, no obvious deformities appreciated, no edema noted to the lower extremities Neuro: Awake and alert, normal gait Psych: Behavior is normal, Mood is normal, Patient is cooperative and pleasant 23:33 Abdomen/GI: Inspection: gravid appearance, is noted, Bowel sounds: normal, Palpation: abdomen is soft and non-tender, in all quadrants. Vital Signs: 23:24 BP 102 / 63; Pulse 90; Resp 18; Temp 98.1; Pulse Ox 100% on R/A; Weight 58.97 kg; df1 Height 5 ft. 5 in. (165.10 cm); Pain 7/10; 04/08 00:47 BP 110 / 86; Pulse 86; Resp 17; Temp 98.4; jb4 01:19 BP 109 / 64 LA Supine (auto/reg); Pulse 77; Resp 16; Pulse Ox 100% on R/A; jb4 01:20 BP 104 / 68 LA Sitting (auto/reg); Pulse 76 LA; Resp 16; Pulse Ox 100% on R/A; jb4 01:21 BP 100 / 67; Pulse 73; Resp 16; Pulse Ox 99% on R/A; jb4 02:19 BP 95 / 60; Pulse 77; Resp 18; Pulse Ox 100% on R/A; ms4 04/07 23:24 Body Mass Index 21.63 (58.97 kg, 165.10 cm) df1 MDM: 04/07 23:33 Patient medically screened. [facility] 04/08 02:10 Data reviewed: vital signs, nurses notes. Counseling: I had a detailed discussion with farzana the patient and/or guardian regarding: the historical points, exam findings, and any diagnostic results supporting the discharge/admit diagnosis, lab results, radiology results, the need for outpatient follow up, to return to the emergency department if symptoms worsen or persist or if there are any questions or concerns that arise at home. 04/07 23:47 Order name: Basic Metabolic Panel; Complete Time: 01:17 banner 04/07 23:47 Order name: CBC with Diff; Complete Time: 00:38 banner 04/07 23:47 Order name: Hepatic Function; Complete Time: : banner 04/07 23:47 Order name: Lipase; Complete Time: : banner 04/08 00:05 Order name: Abo/rh Typing; Complete Time: 02:03 [facility] 04/07 23:47 Order name: IV Saline Lock; Complete Time: 01:30 banner 04/07 23:47 Order name: Labs collected and sent; Complete Time: 00:35 jb 04/08 00:06 Order name: Urine Dipstick-Ancillary (obtain specimen); Complete Time: 00:35 [facility] 04/08 00:12 Order name: Urine Dipstick-Ancillary; Complete Time: 00:26 EDMN 04/08 00:18 Order name: HCG, Quantitative; Complete Time: 01:17 EDMN 04/08 00:52 Order name: Orthostatic Blood Pressure; Complete Time: 01:29 [facility] 04/08 00:55 Order name: OB Limited EDMS Administered Medications: No medications were administered Point of Care Testing: Urine : 00:02 hCG Reading: Positive; Control Reading: Positive; dc2 Disposition: 06:03 Co-signature as Attending Physician, Elliot Astudillo MD I agree with the assessment and alvina plan of care. Disposition Summary: 04/08/21 02:11 Discharge Ordered Location: Home [facility] Condition: Stable [facility] Diagnosis - Threatened [facility] Followup: [facility] - With: Private Physician - When: 2 - 3 days - Reason: Recheck today's complaints, Continuance of care, Re-evaluation by your physician Discharge Instructions: - Discharge Summary Sheet jm - Threatened Miscarriage jmm - Vaginal Bleeding During , Second Trimester [facility] Forms: - Medication Reconciliation Form [facility] - Thank You Letter [facility] - Antibiotic Education [facility] - Prescription Opioid Use [facility] Signatures: Dispatcher [employer] Elliot Stringer MD MD cha Mickail, Joel, PA PA jm nAjel Masters, RN RN banner Emily Razo df1 Corrections: (The following items were deleted from the chart) 00:17 00:06 QUANTITATIVE HCG+C.LAB.BRZ ordered. EDMS EDMS 00:55 00:06 1st Trimest Single 1st Fetus+US.RAD.BRZ ordered. EDMS EDMS
--- NOTE | 2021-04-08 02:12 | ER ---
Nurse's Notes [facility] Name: Rubina Martinez Age: 25 yrs Sex: Female : 1995 Arrival Date: 04/07/2021 Time: 23:19 Bed 14 Private MD: Diagnosis: Threatened Presentation: 04/07 23:24 Chief complaint: Patient states: ABD pain x 2 days with nausea denies V/D/F. LMP early df1 February. Coronavirus screen: Vaccine status: Patient reports being unvaccinated. Client denies travel out of the [place] in the last 14 days. At this time, the client does not indicate any symptoms associated with coronavirus-19. Ebola Screen: Patient negative for fever greater than or equal to 101.5 degrees Fahrenheit, and additional compatible Ebola Virus Disease symptoms. Initial Sepsis Screen: Does the patient meet any 2 criteria? No. Patient's initial sepsis screen is negative. Risk Assessment: Do you want to hurt yourself or someone else? Patient reports no desire to harm self or others. Note Pt states lower ABD pain x 2 days with nausea. Pt states "I'M late for my period". Onset of symptoms was April 05, 2021. 23:24 Method Of Arrival: Ambulatory df1 23:24 Acuity: ARYAN 3 df1 04/08 02:18 Initial Sepsis Screen: Does the patient have a suspected source of infection? No. ms4 Patient's initial sepsis screen is negative. Historical: - Allergies: 04/07 23:28 No Known Allergies; df1 - Home Meds: 23:28 None [Active]; df1 - PMHx: 23:28 None; df1 - PSHx: 23:28 None; df1 - Immunization history:: Adult Immunizations up to date, Client reports having NOT received the Covid vaccine. - Social history:: Smoking status: Patient denies any tobacco usage or history of. Patient uses alcohol, only on a social basis. Screenin:29 Abuse screen: Denies threats or abuse. Nutritional screening: No deficits noted. df1 Tuberculosis screening: No symptoms or risk factors identified. Fall Risk None identified. Assessment: 23:45 General: Appears in no apparent distress. uncomfortable, Behavior is calm, cooperative, jb4 appropriate for age. Pain: Complains of pain in abdomen Pain does not radiate. Pain currently is 7 out of 10 on a pain scale. Neuro: Level of Consciousness is awake, alert, obeys commands, Oriented to person, place, time, situation. Cardiovascular: Patient's skin is warm and dry. Respiratory: Airway is patent Respiratory effort is even, unlabored, Respiratory pattern is regular, symmetrical. GI: Abdomen is round non-distended, Reports cramping. : No signs and/or symptoms were reported regarding the genitourinary system. EENT: No signs and/or symptoms were reported regarding the EENT system. Derm: Skin is intact, Skin is pink, warm \\T\\ dry. Musculoskeletal: Circulation, motion, and sensation intact. Range of motion: intact in all extremities. 04/08 02:17 GI: Bowel sounds present X 4 quads. ms4 02:18 GI: Abd is non tender X 4 quads. ms4 Vital Signs: 04/07 23:24 BP 102 / 63; Pulse 90; Resp 18; Temp 98.1; Pulse Ox 100% on R/A; Weight 58.97 kg; df1 Height 5 ft. 5 in. (165.10 cm); Pain 7/10; 04/08 00:47 BP 110 / 86; Pulse 86; Resp 17; Temp 98.4; jb4 01:19 BP 109 / 64 LA Supine (auto/reg); Pulse 77; Resp 16; Pulse Ox 100% on R/A; jb4 01:20 BP 104 / 68 LA Sitting (auto/reg); Pulse 76 LA; Resp 16; Pulse Ox 100% on R/A; jb4 01:21 BP 100 / 67; Pulse 73; Resp 16; Pulse Ox 99% on R/A; jb4 02:19 BP 95 / 60; Pulse 77; Resp 18; Pulse Ox 100% on R/A; ms4 04/07 23:24 Body Mass Index 21.63 (58.97 kg, 165.10 cm) df1 ED Course: 04/07 23:19 Patient arrived in ED. bp1 23:28 Triage completed. df1 23:30 Corby Mendoza PA is PHCP. [facility] 23:30 Elliot Astudillo MD is Attending Physician. [facility] 04/08 00:00 Urine collected: clean catch specimen, clear. dc2 00:15 MIKIE Tavarez notified of Positive UPT. dc2 00:23 Patient taken to ultrasound. via wheelchair. dc2 00:45 Arm band placed on right wrist. Urine obtained. Urine : positive. Labs ordered jb4 per protocol. Drawn by ED staff. 00:56 OB Limited In Process Unspecified. EDMS 01:18 Anjel Masters, RN is Primary Nurse. jb4 02:17 No provider procedures requiring assistance completed. IV discontinued, intact, ms4 bleeding controlled. 02:18 Patient has correct armband on for positive identification. ms4 Administered Medications: No medications were administered Point of Care Testing: Urine : 00:02 hCG Reading: Positive; Control Reading: Positive; dc2 Outcome: 02:11 Discharge ordered by . jmm 02:17 Discharged to home ambulatory. ms4 02:17 Condition: stable 02:17 Discharge instructions given to patient. 02:38 Patient left the ED. ms4 Signatures: Dispatcher [employer] EDVT Corby Mendoza PA PA [facility] Anjel Masters, RN RN jb4 Lisa Martínez Mikaela RN RN ms4 Emily Razo df1 JtAnna RN RN dc2 Corrections: (The following items were deleted from the chart) 00:55 00:34 To radiology for 1st Trimest Single 1st Fetus+US.RAD.BRZ. dc2 EDMS 01:27 00:43 General: Appears in no apparent distress. comfortable, Behavior is calm, jb4 cooperative, jb4 01:27 00:43 Pain: Complains of pain in pelvis Pain currently is 4 out of 10 on a pain scale. jb4 Quality of pain is described as crampy, Pain began 2-3 days ago. Is intermittent, jb4 01:27 00:43 GI: Abdomen is round distended, jb4 jb4
[2021-04-08 03:17] VITALS: TEMP 98.4
[2021-04-08 03:22] VITALS: BP 95/60; O2SAT 100
--- NOTE | 2021-04-08 11:33 | RAD REPORT ---
EXAM DESCRIPTION: US - OB Limited - 04/08/2021 12:56 am CLINICAL HISTORY: with pelvic pain COMPARISON: None FINDINGS: Limited examination performed to assess viability, placenta, cervix and amniotic flu id. Single live intrauterine in breech presentation. The placenta is anterior. 3 centimeter hypoechoic structure between the placenta and uterine wall. No rmal amniotic fluid Cardiac activity 153 beats per minute. BPD 5.8 centimeters 24 weeks 0 days HC 21.8 centimeters 23 weeks 6 days HC 18.8 centimeters 23 weeks 4 days FL 4.3 centimeters 24 weeks 0 days Cervix measures 3.3 centimeters The right and left adnexal unremarkable IMPRESSION: Single live intrauterine in breech presentation. Estimated gestational age 23 weeks 4 days EZRA 07/30/2021 A 3 centimeter hypoechoic structure between the placenta uterine wall probably a contraction. Fibroid and retroplacental bleed less likely possibilities. This can be monitored on a subsequent exam Results discussed with Candice Casillas in the Emergency Room 11:28 a.m. April 08, 2021
== END 2021-04-08 02:38 | disposition home or self-care (01) ==
LOC: ER 23:16
DX: O20.0 Threatened abortion (principal); Z3A.23 23 weeks gestation of pregnancy
CPT/HCPCS: 36415; 76815; 80048; 80076; 81003; 83690; 84702; 85025; 86900; 86901; 99284